=== PATIENT | female | born 1940 | race Asian ===

== ENCOUNTER 2019-12-25 16:49 | Inpatient (IN) | payer MEDICARE ==
[~2019-12-25] VITALS: Ht 170.2 cm; Wt 54.0 kg
--- NOTE | 2019-12-25 17:06 | NUR ---
CARLOS FROM [facility] TO ER BED 5. AAOX2. NO TIN RESP DISTRESS, BREATHING EVEN AND UNLABORED. BROUGHT IN FOR COUGHING UP BLOOD WHICH WAS NOTED BEGINNING LAST NIGHT PER REPORT. PT IS SATTING WELL AT 95% ON RA. AWAITING MD FOR EVAL
--- NOTE | 2019-12-25 17:27 | NUR ---
ORDERS RECEIVED. IV LINE ESTABLISHED ON R AC 18G. BLOOD DRAWN AND GIVEN TO MALE MODEL AT BEDSIDE
[2019-12-25 17:37] LABS: BASOPHILS % (AUTO) 0.8 % (0.0-2.0); EOSINOPHILS % (AUTO) 0.4 % (0.0-6.0); HEMATOCRIT 36 % (33-45); LYMPHOCYTES # (AUTO) 0.9 /CMM (0.8-4.8); LYMPHOCYTES % (AUTO) 19.4 % (20.0-44.0); MEAN CORPUSCULAR HGB CONC 33 g/dl (31.0-36.0); MEAN CORPUSCULAR VOLUME 98 fL (82-100); MONOCYTES # (AUTO) 0.3 /CMM (0.1-1.30); MONOCYTES % (AUTO) 7.4 % (2.0-12.0); NEUTROPHILS # (AUTO) 3.3 /CMM (1.8-8.9); PLATELET COUNT (AUTO) 355 /CMM (150-450); RED BLOOD CELL COUNT(AUTO) 3.68 MIL/uL (4.0-5.2); WHITE BLOOD COUNT (AUTO) 4.5 K/uL (4.3-11.0)
[2019-12-25] MEDS ORDERED: LOSA50TA39 PO (17:37)
[2019-12-25] MEDS ORDERED: BISA10SU11 RC (17:37)
[2019-12-25] MEDS ORDERED: ASCO-352 PO (17:37)
[2019-12-25] MEDS ORDERED: DOCU-141 PO (17:37)
[2019-12-25] MEDS ORDERED: MAGN400O6 PO (17:37)
[2019-12-25] MEDS ORDERED: ACET-868 PO (17:38)
[2019-12-25] MEDS ORDERED: ZINC1CAP2 PO (17:38)
[2019-12-25] MEDS ORDERED: FAMO20TA8 PO (17:38)
[2019-12-25] MEDS ORDERED: ALBU2.5V13 IH (17:38)
[2019-12-25] MEDS ORDERED: IBUP-2715 PO (17:38)
[2019-12-25 17:54] LABS: CALCIUM, SERUM 8.9 mg/dL (8.5-10.1); CREATININE 0.6 mg/dL (0.6-1.3); POTASSIUM 3.4 mmol/L (3.5-5.1)
[2019-12-25 17:59] LABS: ALBUMIN 2.3 g/dL (3.4-5.0); BILIRUBIN,DIRECT 0.1 mg/dL (0.0-0.2); BILIRUBIN,TOTAL 0.5 mg/dL (0.2-1.0); TOTAL PROTEIN, SERUM 7.2 g/dL (6.4-8.2)
[2019-12-25] MEDS ORDERED: IV NS 0.9% 1,000 ML IV ONE (18:30)
[2019-12-25] MEDS ORDERED: CEFEPIME 1 GM in IV D5W 50 ML IV ONE (18:30)
[2019-12-25] MEDS ORDERED: VANCOMYCIN 1 GM in IV D5W 250 ML IV ONE (18:30)
[2019-12-25] MEDS ORDERED: POTASSIUM CL. PREMIX PERIPHER. 100 ML ONE (18:30)
[2019-12-25] MEDS: POTASSIUM CL. PREMIX PERIPHER. 50 ML IV SCH ×2 (18:43→19:59)
--- NOTE | 2019-12-25 18:55 | NUR ---
COVID SWAB DONE AND SENT TO LAB
[2019-12-25] MEDS ORDERED: IOHEXOL-350 100 ML VIAL IV ONE (19:25)
[2019-12-25] MEDS ORDERED: CT SWABBABLE VALVE TRANS SET 1 EA INFUS.SET MC ONE (19:25)
[2019-12-25] MEDS ORDERED: IV NS 0.9% 250 ML IV ONE (19:25)
[2019-12-25] MEDS ORDERED: ALBUTEROL FS 2.5 MG/0.5 ML VIAL.NEB IH PRN (19:30)
[2019-12-25] MEDS ORDERED: ONDANSETRON HCL/PF 4 MG/2 ML VIAL IVP PRN (19:30)
[2019-12-25] MEDS ORDERED: MAGNESIUM HYDROXIDE 30 ML UDC PO PRN ×3 (19:30)
[2019-12-25] MEDS ORDERED: ACETAMINOPHEN 325 MG TABLET PO PRN ×2 (19:30)
[2019-12-25] MEDS ORDERED: BISACODYL SUPP (10 MG) 10 MG/SUPP.RECT SUPP.RECT RC PRN (19:30)
[2019-12-25] MEDS ORDERED: Z GUARD REMEDY 2 OZ OINT TP PRN (19:30)
[2019-12-25] MEDS ORDERED: MAG HYDROX/AL HYDROX/SIMETH 30 ML UDC PO PRN ×2 (19:30)
[2019-12-25] MEDS ORDERED: HYDROCODONE/APAP 5/325MG TABLET PO PRN (19:30)
--- NOTE | 2019-12-25 19:43 | NUR ---
pt back from radiology
[2019-12-25 20:00] VITALS: BP 146/88
[2019-12-25] MEDS ORDERED: CLINDAMYCIN 600 MG in IV D5W 100 ML IV ONE (20:00)
--- NOTE | 2019-12-25 20:48 | NUR ---
REPORT GIVEN TO JOYCELYN DUNNE FOR WOOD. PT GOING TO 207
[2019-12-25 21:00] VITALS: BP 146/88
--- NOTE | 2019-12-25 21:08 | NUR ---
PT TRANSPORTED TO UNIT ON GURNEY WITH EMT AND RN AT BEDSIDE W/ ACLS PROTOCOL. NAD NOTED DURING TRANSPORT.
--- NOTE | 2019-12-25 21:10 | NUR ---
RN NOTES RECEIVED PT. FROM ER WITH DX. OF HEMOPTYSIS,A/OX2-3, ST ON TELE MONITOR HR-103, SKIN ASSESSMENT DONE, PT.SPITTING PHLEGM BUT NO BLOOD TINGED , SIDERAILSUPX2, CONTINUE TO MONITOR
[2019-12-25] MEDS ORDERED: CLINDAMYCIN 900 MG/6 ML VIAL ONE (22:19)
[2019-12-25 23:58] VITALS: BP 138/79
[2019-12-26] VITALS (9 sets, daily range): BP systolic 109–138; BP diastolic 66–79
[2019-12-26] MEDS: PIPERACILLIN /TAZOBACTAM 3.375 G in IV D5W 50 ML IV SCH ×4 (00:27→17:01)
[2019-12-26] MEDS: FAMOTIDINE (20 MG) 20 MG TABLET PO SCH (06:09)
--- NOTE | 2019-12-26 06:34 | NUR ---
RN NOTES AWAKE, MORNING CARE RENDERED IN LOCKED POSITION, NOT IN DISTRESS, NO PAIN NOTED, , BED IN LOCKED POSITION,SIDERAILSUPX2, PT. NEEDS ATTENDED
[2019-12-26 07:24] LABS: BASOPHILS % (AUTO) 0.9 % (0.0-2.0); EOSINOPHILS % (AUTO) 0.8 % (0.0-6.0); HEMATOCRIT 34 % (33-45); HEMOGLOBIN 11.2 g/dL (11.5-14.8); LYMPHOCYTES # (AUTO) 0.5 /CMM (0.8-4.8); LYMPHOCYTES % (AUTO) 11.8 % (20.0-44.0); MEAN CORPUSCULAR HGB CONC 33 g/dl (31.0-36.0); MEAN CORPUSCULAR VOLUME 100 fL (82-100); MONOCYTES # (AUTO) 0.4 /CMM (0.1-1.30); MONOCYTES % (AUTO) 8.4 % (2.0-12.0); NEUTROPHILS # (AUTO) 3.5 /CMM (1.8-8.9); NEUTROPHILS % (AUTO) 78.1 % (43.0-81.0); PLATELET COUNT (AUTO) 315 /CMM (150-450); RED BLOOD CELL COUNT(AUTO) 3.43 MIL/uL (4.0-5.2); WHITE BLOOD COUNT (AUTO) 4.4 K/uL (4.3-11.0)
[2019-12-26 07:41] LABS: CALCIUM, SERUM 8.1 mg/dL (8.5-10.1); CARBON DIOXIDE 28 mmol/L (21-32); CHLORIDE 103 mmol/L (98-107); CREATININE 0.4 mg/dL (0.6-1.3); GLUCOSE 97 mg/dL (74-106); MAGNESIUM 2.1 mg/dL (1.8-2.4); PHOSPHORUS 2.5 mg/dL (2.5-4.9); POTASSIUM 3.3 mmol/L (3.5-5.1); SODIUM SERUM 138 mmol/L (136-145); UREA NITROGEN, BLOOD 9 mg/dL (7-18)
[2019-12-26] MEDS: POTASSIUM CHLORIDE 20 MEQ TAB.PRT.SR PO ONE ×2 (08:00→08:25)
--- NOTE | 2019-12-26 08:00 | NUR ---
PHYSICIAN/INTERNIST NOTES RECEIVED PT ,A/OX2-3, SR ON TELE MONITOR HR-83, PT.SPITTING PHLEGM BUT NO BLOOD TINGED NOTED , ORAL CARE GIVEN AND KEPT CLEAN AND DRY. SIDERAILSUPX2, TURNED EVERY TWO HRS. WILL CONTINUE TO MONITOR
[2019-12-26] MEDS: ZINC SULFATE 220 MG CAPSULE PO SCH ×2 (08:20→09:00)
[2019-12-26] MEDS: DOCUSATE SODIUM 100 MG CAPSULE PO SCH ×3 (08:20→16:59)
[2019-12-26] MEDS: VANCOMYCIN 0.75 GM in IV D5W 250 ML IV SCH ×2 (08:20→20:02)
[2019-12-26] MEDS: ASCORBIC ACID 500 MG TABLET PO SCH ×3 (08:20→16:59)
--- NOTE | 2019-12-26 08:20 | NUR ---
NOTIFIED DR HOBBS OF PT'S VTE 3 NEEDING CHEMICAL PROPHYLAXIS AND DR HOBBS STATED THAT HE WILL CHECK ON IT.
[2019-12-26] MEDS: LOSARTAN POTASSIUM 50 MG TABLET PO SCH ×2 (08:26→09:00)
--- NOTE | 2019-12-26 10:03 | NUR ---
FLU/PNA STATUS CALLED [facility] AND SPOKE TO THE RN EDUCATION DIAGNOSTICIAN WHO STATED THAT THEY HELD ADMINISTERING FLU/PNA VACCINE IN THE FACILITY DUE TO THE OUTBREAK. PT IS ALSO NOTED TO BE ALLERGIC TO EGGS WHICH IS THE REASON WHY FLU VACCINE WAS HELD.
--- NOTE | 2019-12-26 10:08 | NUR ---
PT ATE SCRAMBLED EGGS THIS MORNING BUT WITH NO ALLERGIC REACTION NOTED.PT ADMITS SHE IS ALLERGIC TO EGGS. PT HAS HX OF CONFUSION.
--- NOTE | 2019-12-26 15:29 | NUR ---
NOTIFIED DR HOBBS 2ND TIME OF PT'S VTE 3 NEEDING CHEMICAL PROPHYLAXIS AND DR HOBBS STATED THAT HE WILL CHECK ON IT.
--- NOTE | 2019-12-26 18:15 | NUR ---
NOTIFIED PT OF THE COVID PCR :NEGATIVE RESULT AND THAT SHE WILL BE TRANSFERRED TO [facility] ROOM 327-2. REPORT AND MEDICATIONS GIVEN TO JOYCELYN PACE OF [facility] FOR CONTINUITY OF CARE. PT DENIES ANY PAIN OR DISTRESS.NO SOB ON ROOM AIR.KEPT CLEAN AND DRY.
--- NOTE | 2019-12-26 18:51 | NUR ---
TELE/RN CLOSING RECEIVED REPORT FROM ABIMBOLA HIRSCH, PATIENT CAME AT 1830. PATIENT IN NO APPARENT RESPIRATORY DISTRESS NOTED. NO SIGN AND SYMPTOM OF PAIN NOTED AT THIS TIME. WILL ENDORSED TO SUPERVISOR COKE HANDLING FOR WOOD.
--- NOTE | 2019-12-26 19:30 | NUR ---
TELE/RN OPENING NOTES: RECEIVED PT. IN BED, A/OX2. VERBALLY RESPONSIVE AND ABLE TO MAKE NEEDS KNOWN. PT. TALKS VERY SOFTLY AND USES HAND GESTURES TO COMMUNICATE. PT. LIKES TO SPIT OUT PHLEGM. TOWELS PLACED ON HER CHEST AND AT BEDSIDE. EMESIS BAG AT BEDSIDE WELL. NO SOB NOTED. ON ROOM AIR, BREATHING EVEN AN UNLABORED. NO C/O PAIN AT THIS TIME. ON TELE MONITORING WITH READING OF SR 96. IV ON THE LFA #20G AND RAC #20G, INTACT AND PATENT. SAFETY MEASURES IN PLACE. BED IN LOW, LOCKED POSITION WITH SR UP X2. WILL CONTINUE TO MONITOR ACCORDINGLY.
[2019-12-27] MEDS: PIPERACILLIN /TAZOBACTAM 3.375 G in IV D5W 50 ML IV SCH ×5 (00:14→23:30)
[2019-12-27 04:00] VITALS: BP 117/72
[2019-12-27 05:04] VITALS: BP 117/72
[2019-12-27] MEDS: FAMOTIDINE (20 MG) 20 MG TABLET PO SCH (06:11)
--- NOTE | 2019-12-27 06:55 | NUR ---
TELE/RN CLOSING NOTES: PT. REMAINS BED, A/OX2. VERBALLY RESPONSIVE AND ABLE TO MAKE NEEDS KNOWN. NO SOB NOTED. ON ROOM AIR, BREATHING EVEN AN UNLABORED. NO C/O PAIN AT THIS TIME. ON TELE MONITORING WITH READING OF ST 101. IV ON THE LFA #20G AND RAC #20G, INTACT AND PATENT. ALL DUE MEDS GIVEN ORDERED. ALL NURSING NEEDS MET AND RENDERED. [id number]. KEPT CLEAN AND DRY AND COMFORTABLE THROUGHOUT THE SHIFT. SAFETY MEASURES IN PLACE. BED IN LOW, LOCKED POSITION WITH SR UP X2. WILL ENDORSE TO DAY SHIFT FOR WOOD.
[2019-12-27 07:42] LABS: CALCIUM, SERUM 8.4 mg/dL (8.5-10.1); CREATININE 0.6 mg/dL (0.6-1.3); POTASSIUM 3.3 mmol/L (3.5-5.1)
--- NOTE | 2019-12-27 07:52 | NUR ---
CLOUD SYSTEMS ADMINISTRATOR OPENING NOTES BEDSIDE ENDORSEMENT DONE. PATIENT IS IN BED, AWAKE AND VERBALLY RESPONSIVE. A/O X1-2, MOUTHS WORDS/SPEAKS SOFTLY. BREATHING EVEN AND UNLABORED, TOLERATING ROOM AIR. ON TELE MONITORING, READING OF SR W/ PAC, HR AT 90'S, NO CARDIAC DISTRESS. IV LINE ON RAC #20 AND LFA #20 INTACT AND PATENT. SAFETY PRECAUTIONS IN PLACE: BED LOCKED AND ON LOWEST POSITION, SR UP X2, CALL LIGHT W/IN REACH. WILL MONITOR ACCORDINGLY.
[2019-12-27 08:00] VITALS: BP 109/62
[2019-12-27] MEDS: VANCOMYCIN 0.75 GM in IV D5W 250 ML IV SCH (08:50)
[2019-12-27] MEDS: ASCORBIC ACID 500 MG TABLET PO SCH ×2 (08:51→17:06)
[2019-12-27] MEDS: LOSARTAN POTASSIUM 50 MG TABLET PO SCH (08:51)
[2019-12-27] MEDS: ZINC SULFATE 220 MG CAPSULE PO SCH (08:51)
[2019-12-27] MEDS: DOCUSATE SODIUM 100 MG CAPSULE PO SCH ×2 (08:51→17:06)
[2019-12-27] MEDS ORDERED: POTASSIUM CHLORIDE 20 MEQ TAB.PRT.SR PO SCH (10:00)
--- NOTE | 2019-12-27 11:38 | NUR ---
WOUND CARE CONSULT: PT PRESENTS WITH SACRAL SCAR, PRESENT ON ADMISSION. PT IS INCONTINENT. RECOMMENDATIONS MADE FOR SKIN PROTECTION. DISCUSSED WITH NURSING STAFF. PT TO BE PLACED ON ISOFLEX LOW AIRLOSS BED. MD IN AGREEMENT WITH PLAN OF CARE.
--- NOTE | 2019-12-27 15:24 | NUR ---
RN NOTES PATIENT WAS SEEN SPITTING SCANT AMOUNT OF SPUTUM. ASKED IF SHE FEELS NAUSEOUS, TO WHICH PATIENT NODDED HER HEAD. ZOFRAN IV GIVEN INDICATED AND REASSESSED PATIENT. PATIENT NODDED HER HEAD WHEN ASKED IF THE NAUSEA HAS DECREASED.
[2019-12-27 16:00] VITALS: BP 128/56
--- NOTE | 2019-12-27 17:58 | NUR ---
RN NOTES PATIENT WAS SEEN BY DR. LOPEZ W/ ORDER FOR CT ABDOMEN PELVIS W/O CONTRAST. PATIENT ALERT AND ORIENTED X1-2, ABLE TO MAKE NEEDS KNOWN, EXPLAINED PROCEDURE AND CONSENT TO PATIENT, NODDED UNDERSTANDING. CONSENT FORM SIGNED BY PATIENT AND WITNESSED BY ME.
--- NOTE | 2019-12-27 18:00 | NUR ---
RN NOTES [facility] CALLED AND INFORMED ABOUT PATIENT'S POSITIVE MRSA RESULT OF RIGHT NARES. DR. HOBBS MADE AWARE W/ ORDER OF BACTROBAN SILVANA BID X5DAYS, NOTED.
--- NOTE | 2019-12-27 18:58 | NUR ---
FORK REPAIRER CLOSING NOTES PATIENT IS IN BED, AWAKE AND VERBALLY RESPONSIVE. A/O X1-2, MOUTHS WORDS/SPEAKS SOFTLY. BREATHING EVEN AND UNLABORED, TOLERATING ROOM AIR. ON TELE MONITORING, READING OF SR, HR AT MID 80'S, NO CARDIAC DISTRESS. IV LINE ON LFA #20 INTACT AND PATENT. DUE MEDS GIVEN TODAY. KEPT CLEAN AND COMFORTABLE. SAFETY PRECAUTIONS MAINTAINED: BED LOCKED AND ON LOWEST POSITION, SR UP X2, CALL LIGHT W/IN REACH. WILL ENDORSE TO ANALYTICS SENIOR MANAGER RN FOR WOOD.
--- NOTE | 2019-12-27 19:30 | NUR ---
TELE/RN OPENING NOTES RECEIVED PATIENT IN BED RESTING. PATIENT IS ALERT AND ORIENTED X 2. TELE READING SR 99. BREATHING IS EVEN AND UNLABORED. NO SIGNS OF SOB OR RESPIRATORY DISTRESS NOTED. PATIENT SHOWS NO PAIN OR DISCOMFORT AT THIS TIME. PATIENT HAS IV ACCESS ON LEFT FOREARM INTACT FLUSHING WELL. SAFETY MEASURES ARE ON PLACE, BED IS LOCKED AND PLACED IN THE LOW POSITION, SIDE RAILS UP X 2. CALL LIGHT IS WITHIN REACH. WILL CONTINUE TO MONITOR DURING SHIFT.
[2019-12-27 20:00] VITALS: BP 133/80
[2019-12-27 20:07] VITALS: BP 133/80
[2019-12-27] MEDS: VANCOMYCIN 1 GM in IV D5W 250 ML IV SCH (20:20)
[2019-12-27] MEDS: MUPIROCIN OINT 2% 22 GM TUBE SCH (20:22)
[2019-12-28] VITALS (8 sets, daily range): BP systolic 108–150; BP diastolic 65–98
[2019-12-28] MEDS: PIPERACILLIN /TAZOBACTAM 3.375 G in IV D5W 50 ML IV SCH ×3 (05:31→17:13)
[2019-12-28] MEDS: FAMOTIDINE (20 MG) 20 MG TABLET PO SCH (05:31)
--- NOTE | 2019-12-28 06:30 | NUR ---
TELE/RN CLOSING NOTES PATIENT IS IN BED RESTING. ALERT AND ORIENTED X 1-2, ABLE TO MAKE NEEDS KNOWN TO STAFF MEMBERS. TELE READING SR95 . PATIENTS BREATHING IS EVEN AND UNLABORED. NO SIGNS OF RESPIRATORY DISTRESS NOTED. PATIENT HAS IV ACCESS ON LEFT FOREARM INTACT SL. ALL PATIENTS NEEDS HAVE BEEN MET DURING SHIFT. SAFETY MEASURES ARE IN PLACE, BED IS LOCKED AND PLACED IN THE LOW POSITION, SIDE RAILS UP X 2. CALL LIGHT IS WITHIN REACH. WILL ENDORSE CARE TO DAY SHIFT NURSE.
[2019-12-28 07:36] LABS: CALCIUM, SERUM 8.8 mg/dL (8.5-10.1); CARBON DIOXIDE 29 mmol/L (21-32); CHLORIDE 102 mmol/L (98-107); CREATININE 0.5 mg/dL (0.6-1.3); GLUCOSE 106 mg/dL (74-106); POTASSIUM 3.1 mmol/L (3.5-5.1); SODIUM SERUM 137 mmol/L (136-145); UREA NITROGEN, BLOOD 8 mg/dL (7-18)
[2019-12-28 07:37] LABS: BASOPHILS % (AUTO) 0.8 % (0.0-2.0); EOSINOPHILS % (AUTO) 0.2 % (0.0-6.0); HEMATOCRIT 32 % (33-45); HEMOGLOBIN 10.6 g/dL (11.5-14.8); LYMPHOCYTES # (AUTO) 0.6 /CMM (0.8-4.8); LYMPHOCYTES % (AUTO) 12.2 % (20.0-44.0); MEAN CORPUSCULAR HGB CONC 33 g/dl (31.0-36.0); MEAN CORPUSCULAR VOLUME 99 fL (82-100); MONOCYTES # (AUTO) 0.3 /CMM (0.1-1.30); MONOCYTES % (AUTO) 5.6 % (2.0-12.0); NEUTROPHILS % (AUTO) 81.2 % (43.0-81.0); PLATELET COUNT (AUTO) 283 /CMM (150-450); RED BLOOD CELL COUNT(AUTO) 3.22 MIL/uL (4.0-5.2); WHITE BLOOD COUNT (AUTO) 4.9 K/uL (4.3-11.0)
--- NOTE | 2019-12-28 08:05 | NUR ---
OVEN HEATER OPENING NOTES RECEIVED PT ON BED, A/O1-2, NON VERBAL COMMUNICATION VIA NODDING. NO PRESENCE OF ACUTE RESPIRATORY DISTRESS, ON RA AND TOLERATING WELL. ABD SOFT AND NON DISTENDED WITH ACTIVE BOWEL SOUNDS. NO S/SX OF PAIN AND DISCOMFORT. SKIN WARM TO TOUCH AND DRY. TOLERATING BREAKFAST REGULAR DIET, WITH ASPIRATION PRECAUTION, HOB ELEVATED. IV SITE AT LFA #20 H/L PATENT IN FLUSHING, NO S/SX OF INFILTRATION NOTED. BED IN LOW LOCKED POSITION, NEAR NURSES STATION. TELE MONITOR SHOWS SR. WILL CONT TO MONITOR CARE
[2019-12-28] MEDS: VANCOMYCIN 1 GM in IV D5W 250 ML IV SCH ×2 (08:08→20:01)
[2019-12-28] MEDS: ASCORBIC ACID 500 MG TABLET PO SCH ×2 (08:49→16:24)
[2019-12-28] MEDS: DOCUSATE SODIUM 100 MG CAPSULE PO SCH ×2 (08:49→16:24)
[2019-12-28] MEDS: ZINC SULFATE 220 MG CAPSULE PO SCH (08:49)
[2019-12-28] MEDS: LOSARTAN POTASSIUM 50 MG TABLET PO SCH (08:50)
[2019-12-28] MEDS: MUPIROCIN OINT 2% 22 GM TUBE SCH ×2 (09:10→21:35)
--- NOTE | 2019-12-28 09:50 | NUR ---
SCALP TREATMENT OPERATOR NOTES ENDORSED PT CARE TO GREG HIRSCH, MAIN NURSE
--- NOTE | 2019-12-28 10:00 | NUR ---
BUSINESS SUPPORT LIAISON NOTES RECEIVED PATIENT FOR CONTINUATION OF CARE.
--- NOTE | 2019-12-28 10:15 | NUR ---
RESEARCH GREENHOUSE SUPERVISOR NOTES PATIENT OFF UNIT, WENT TO CT.
[2019-12-28] MEDS: POTASSIUM CHLORIDE 20 MEQ TAB.PRT.SR PO SCH ×2 (10:55→12:26)
--- NOTE | 2019-12-28 11:00 | NUR ---
KENO WRITER / RUNNER NOTES PATIENT RETURNED TO UNIT FROM CT.
--- NOTE | 2019-12-28 15:30 | NUR ---
INTELLIGENCE SENIOR SERGEANT NOTES CALLED [facility] AND SPOKE TO DESTINY (NURSE) REGARDING PATIENT. PER DESTINY PATIENT HAS NOT BEEN TREATED FOR LUNG CA WITH ANY DRUGS NOR HAS BEEN SEEN BY ANY ONCOLOGIST. PATIENT WAS ADMITTED TO [facility] IN OF THIS YEAR FROM [facility] BUT NO OTHER RECORDS ABOUT LUNG CANCER GIVEN TO [facility] PER DESTINY.
--- NOTE | 2019-12-28 18:38 | NUR ---
MULTIMEDIA INSTRUCTIONAL DESIGNER NOTE PATIENT RESTING COMFORTABLY IN BED. ALERT AND ORIENTED X1. ABLE TO ANSWER SIMPLE QUESTIONS WITH YES OR NO BY NODDING HEAD. ABLE TO FOLLOW SIMPLE COMMANDS. VERBALLY RESPONSIVE WITH SOFT SPOKEN WORDS. HOB ELEVATED. REMAIN ON ROOM AIR DURING THE SHIFT WITH SPO2 OF 96-98%. OBSERVED PATIENT SPITTING AND COUGHING OUT YELLOW THICK SECRETIONS, NO BLOOD OBSERVED. REMAIN ON TELE MONITORING ST:90. LEFT FA SL #20 INTACT AND PATENT. DENIES ANY C/O PAIN NOR DISCOMFORT. BED IN LOWEST POSITION, LOCKED. FREQUENT VISUAL CHECK DONE. IN NO APPARENT DISTRESS.
--- NOTE | 2019-12-28 19:10 | NUR ---
burner operator opening notes received patient in bed awake alert and oriented x1-2, able to make simple needs known by head gesturing yes or no, respirations even and unlabored with equal rise and fall of chest, at this time remains comfortable, denies any discomfort ,no distress present, on tele monitoring st 120 , iv site to left fa#20 g intact and patent, no redness,no infiltration present, safety precautions rendered, low bed and locked, oriented to call light and kept within reach, all needs attended at this time will continue to monitor and attend to needs.
[2019-12-28 19:40] LABS: IRON, SERUM 25 ug/dl (50-175); TOTAL IRON BINDING CAPACITY 165 ug/dl (250-450)
[2019-12-28 19:44] LABS: FERRITIN 1338 ng/mL (8-388)
[2019-12-28] MEDS: ACETAMINOPHEN 325 MG TABLET PO PRN (20:35)
--- NOTE | 2019-12-28 20:36 | NUR ---
weed burner notes noted facial grimacing asked patient if in pain nodded head yes, asked pt to point to pain location pointed to legs, offered repositioning and pain medication patient nodded head and agreed to tylenol prn for pain.
[2019-12-28] MEDS: MEROPENEM 500 MG in IV NS 0.9% 50 ML IV SCH (21:33)
[2019-12-29] VITALS (9 sets, daily range): BP systolic 110–140; BP diastolic 60–88
[2019-12-29] MEDS: MEROPENEM 500 MG in IV NS 0.9% 50 ML IV SCH ×3 (05:15→21:25)
[2019-12-29] MEDS: FAMOTIDINE (20 MG) 20 MG TABLET PO SCH (05:17)
--- NOTE | 2019-12-29 06:30 | NUR ---
corn husk baler closing notes patient in bed awake alert and oriented x1-2, able to make simple needs known by head gesturing yes or no, respirations even and unlabored with equal rise and fall of chest, at this time remains comfortable, denies any discomfort ,no distress present, on tele monitoring st 111 , no distress present. iv site to left fa#20 g intact and patent, no redness,no infiltration present, safety precautions rendered, low bed and locked, repositioned q 2hrs ,call light kept within reach, all needs attended at this time will continue to monitor and attend to needs and endorse to next shift.
[2019-12-29 07:05] LABS: BASOPHILS % (AUTO) 0.2 % (0.0-2.0); HEMATOCRIT 35 % (33-45); HEMOGLOBIN 11.4 g/dL (11.5-14.8); LYMPHOCYTES # (AUTO) 0.8 /CMM (0.8-4.8); LYMPHOCYTES % (AUTO) 11.5 % (20.0-44.0); MEAN CORPUSCULAR HGB CONC 33 g/dl (31.0-36.0); MEAN CORPUSCULAR VOLUME 100 fL (82-100); MONOCYTES # (AUTO) 1.2 /CMM (0.1-1.30); MONOCYTES % (AUTO) 17.5 % (2.0-12.0); NEUTROPHILS # (AUTO) 4.7 /CMM (1.8-8.9); NEUTROPHILS % (AUTO) 70.8 % (43.0-81.0); PLATELET COUNT (AUTO) 247 /CMM (150-450); RED BLOOD CELL COUNT(AUTO) 3.48 MIL/uL (4.0-5.2); WHITE BLOOD COUNT (AUTO) 6.6 K/uL (4.3-11.0)
[2019-12-29] MEDS: VANCOMYCIN 1 GM in IV D5W 250 ML IV SCH (08:00)
--- NOTE | 2019-12-29 08:17 | NUR ---
RN OPENING NOTE Patient is resting in bed, A/O x1, responds by nodding head "yes" or "no," she is in no acute distress or SOB, stable on RA. Tele monitor ST 116. Patient denies pain at this time. Patient is able to cough up thick yellow/white secretions --suction as needed. Patient vomited x1 small amount of the puree food for breakfast. Bed is in lowest position, side rails x3 in upright position, call light is within reach, fall safety aspiration and isolation precautions enforced to R/O TB. Will continue with plan of care.
--- NOTE | 2019-12-29 08:18 | NUR ---
RN NOTE Held Vanco this AM due to trough level of 21. Pharmacy aware.
[2019-12-29] MEDS: DOCUSATE SODIUM 100 MG CAPSULE PO SCH ×2 (08:20→16:01)
[2019-12-29] MEDS: ZINC SULFATE 220 MG CAPSULE PO SCH (08:20)
[2019-12-29] MEDS: ASCORBIC ACID 500 MG TABLET PO SCH ×2 (08:20→16:01)
[2019-12-29] MEDS: LOSARTAN POTASSIUM 50 MG TABLET PO SCH (08:20)
[2019-12-29 08:38] LABS: CALCIUM, SERUM 8.6 mg/dL (8.5-10.1); POTASSIUM 3.9 mmol/L (3.5-5.1)
[2019-12-29] MEDS: MUPIROCIN OINT 2% 22 GM TUBE SCH ×2 (08:39→21:29)
[2019-12-29 09:03] LABS: BAND % (MANUAL) 1 % (0.0-5.0); LYMPHOCYTES % (MANUAL) 13 % (16-48); MONOCYTES % (MANUAL) 12 % (0-11.0); NEUTROPHILS % (MANUAL) 74 (42-76)
[2019-12-29] MEDS: ACETAMINOPHEN 325 MG TABLET PO PRN (16:01)
--- NOTE | 2019-12-29 17:05 | NUR ---
RN NOTE Around 1530, patient's temp was 100.8F, cooling measures implemented and Tylenol PRN given. Re-checked temp and it went down to 97.9F. Patient VS remain stable, will continue to monitor.
[2019-12-29] MEDS: ENSURE ENLIVE CHOC 237 ML CAN PO SCH (17:15)
--- NOTE | 2019-12-29 18:30 | NUR ---
RN CLOSING NOTE Patient is resting in bed, A/O x1, responds by nodding head "yes" or "no," she is in no acute distress or SOB, stable on RA. Tele monitor ST 116. . Patient is able to cough up thick yellow/white secretions --suction as needed. Dulcolax supp given d/t constipation--no BM this shift. All patient needs met, all due medications given, patient kept clean and dry throughout shift. Bed is in lowest position, side rails x3 in upright position, call light is within reach, fall safety aspiration and isolation precautions enforced to R/O TB. Will endorse to manufacturing shift supervisor for WOOD. *Called daughter Mary x2 to f/u on previous patient records per , however, family did not answer.
--- NOTE | 2019-12-29 20:00 | NUR ---
tele school bus driver/teacher assistant initial notes received report from am nurse and seen pt in bed resting with eyes closed. , breathing even and non-labored not in any distress noted.suctioned as needed. arouse to her name and touch. IVF still infusing . skin warm and dry to touch, encourage her to used the call light if she needs some help or needs the nurse, She also on Tele Sinus Tach heart rate 103. kept her warm and comfortable at all times. will continue monitoring, place call light at reach.
[2019-12-29] MEDS ORDERED: VANCOMYCIN 1 GM in IV D5W 250 ML IV SCH (21:00)
[2019-12-30] VITALS: BP 136/77
--- NOTE | 2019-12-30 | NUR ---
tele phlebotomist lab assistant notes pt sleeping comfortably in bed without any acute distress noted. respiration even and unlabored. Tele Sinus tach. vital signs stable . kept her warm and comfortable at all times. will continue monitoring.
[2019-12-30 04:00] VITALS: BP 137/77
[2019-12-30] MEDS: MEROPENEM 500 MG in IV NS 0.9% 50 ML IV SCH ×3 (05:31→20:42)
[2019-12-30] MEDS: FAMOTIDINE (20 MG) 20 MG TABLET PO SCH (05:56)
[2019-12-30 06:51] LABS: CALCIUM, SERUM 8.3 mg/dL (8.5-10.1); CARBON DIOXIDE 23 mmol/L (21-32); CHLORIDE 100 mmol/L (98-107); CREATININE 2.4 mg/dL (0.6-1.3); GLUCOSE 91 mg/dL (74-106); POTASSIUM 3.5 mmol/L (3.5-5.1); SODIUM SERUM 136 mmol/L (136-145); UREA NITROGEN, BLOOD 25 mg/dL (7-18)
--- NOTE | 2019-12-30 07:00 | NUR ---
tele nurse private duty closing notes ' pt resting comfortably in bed without any acute distress noted. pt able to spit out her phlegm that light yellowish in color. Stable throughout the night and all due meds given . morning care rendered as well as skin care. applied z guard and mepilex to buttocks area. reposition her for comfort. kept her warm and comfortable at all times. place call light at reach. Tele Sinus tach heart rate 110 per monitor. will endorse to am nurse for continuity of care.
[2019-12-30 07:06] LABS: IMMUNOGLOBULIN A, SERUM 376 mg/dL (64-422); IMMUNOGLOBULIN G, SERUM 1471 mg/dL (586-1602); IMMUNOGLOBULIN M, SERUM 102 mg/dL (26-217)
--- NOTE | 2019-12-30 07:25 | NUR ---
PRODUCT OPERATIONS ASSOCIATE NOTES PATIENT RECEIVED IN BED, ALERT AND ORIENTED X 1-2. PATIENT ON ROOM AIR WITH NO SIGNS OF RESPIRATORY DISTRESS WITH EVEN NON-LABORED BREATHING, AND NO SOB NOTED, WITH PRODUCTIVE COUGH. ON RESIDENTIAL TECH SINUS RHYTHM 100. IV ACCESS INTACT AND PATENT. SKIN WARM AND DRY TO TOUCH. ISOLATION PRECAUTIONS REMAINS. SAFETY PRECAUTIONS IMPLEMENTED WITH BED LOCKED BED IN THE LOWEST POSITION, BILATERAL SIDE RAILS UP, BED ALARM ON, AND CALL LIGHT WITHIN EASY REACH OF THE PATIENT. WILL CONTINUE TO MONITOR PATIENT.
[2019-12-30 08:00] VITALS: BP 156/51
[2019-12-30] MEDS: ZINC SULFATE 220 MG CAPSULE PO SCH (09:14)
[2019-12-30] MEDS: DOCUSATE SODIUM 100 MG CAPSULE PO SCH ×2 (09:14→17:04)
[2019-12-30] MEDS: ASCORBIC ACID 500 MG TABLET PO SCH ×2 (09:14→17:04)
[2019-12-30] MEDS: MUPIROCIN OINT 2% 22 GM TUBE SCH ×2 (09:31→20:43)
[2019-12-30] MEDS: ENSURE ENLIVE CHOC 237 ML CAN PO SCH ×3 (09:31→17:04)
--- NOTE | 2019-12-30 11:53 | NUR ---
SURVEY FIELD TECHNICIAN NOTES CALLED [facility], , REGARDING PATIENT'S PRIMARY ONCOLOGIST AND RECORDS, SPOKE WITH ERIKA AND STATES THERE IS NO INFORMATION AND WILL LOOK INTO AND CALL BACK, CALL BACK NUMBER PROVIDED, AND WILL AWAIT FOR UPDATE.
[2019-12-30 12:00] VITALS: BP 100/57
[2019-12-30 16:00] VITALS: BP 104/63
[2019-12-30 16:31] LABS: *SPE A/G RATIO 0.7 (0.7-1.7); *SPE ALBUMIN 2.7 g/dL (2.9-4.4); *SPE ALPHA-1-GLOBULIN 0.4 g/dL (0.0-0.4); *SPE ALPHA-2-GLOBULIN 0.9 g/dL (0.4-1.0); *SPE BETA GLOBULIN 1.1 g/dL (0.7-1.3); *SPE M-SPIKE Not Observed g/dL (Not Observed); *SPEGAMMA GLOBULIN 1.5 g/dL (0.4-1.8)
--- NOTE | 2019-12-30 18:19 | NUR ---
PLANER HAND NOTES PATIENT IN BED, RESTING COMFORTABLY, ALERT AND ORIENTED 1-2, ABLE TO ANSWER TO YES OR NO QUESTIONS, AND NEEDS ARE MET. ON ROOM AIR WITH NO SIGNS OF RESPIRATORY DISTRESS AT THIS TIME, WITH EVEN NON-LABORED BREATHING, AND WITH PRODUCTIVE PHLEGM PRESENT, SUCTION NEEDED. PATIENT PRESENTS WITH NO PAIN OR DISCOMFORT AT THIS TIME. ON SOFTWARE LICENSING EXECUTIVE SINUS TACH, 116-118. MET ALL OF PATIENT NEEDS, PATIENT KEPT CLEAN AND DRY. PATIENT IV ACCESS INTACT AND PATENT. SAFETY PRECAUTIONS IMPLEMENTED WITH THE BED LOCKED, BED IN THE LOWEST POSITION, BILATERAL SIDE RAILS UP, BED ALARM ON AND CALL LIGHT WITHIN EASY REACH OF THE PATIENT. WILL ENDORSE PLAN OF CARE TO UPCOMING RN.
--- NOTE | 2019-12-30 19:30 | NUR ---
Opening Notes: Report received from am nurse. Patient alert, awake and oriented x1. Patient able to respond by nodding her head. On telemetry monitoring, noted sinus tachy. Patient in no s/s of distress or discomfort, no SOB noted, no c/o pain. Patient noted with IV on left forearm, 20 g, TKO, aspiration precaution observed. Needs anticipated and attended. Fall precautions observed. Call light within reach.
[2019-12-30 20:00] VITALS: BP 109/64
[2019-12-31] VITALS: BP 119/74
[2019-12-31 04:00] VITALS: BP 121/82
[2019-12-31] MEDS: MEROPENEM 500 MG in IV NS 0.9% 50 ML IV SCH (05:10)
--- NOTE | 2019-12-31 05:47 | NUR ---
Closing Notes: Patient alert and oriented x1. Patient in no s/s of distress or discomfort, no SOB noted, no c/o pain. VS WNL. IV on left forearm, 20 g, intact, TKO, aspiration precaution observed. Turned and repositioned every 2 hours, tolerated well. Needs anticipated and attended. Bed locked and in lowest position. Call light within reach.
[2019-12-31] MEDS: FAMOTIDINE (20 MG) 20 MG TABLET PO SCH (06:07)
[2019-12-31 06:27] LABS: BASOPHILS % (AUTO) 0.6 % (0.0-2.0); HEMATOCRIT 35 % (33-45); HEMOGLOBIN 11.7 g/dL (11.5-14.8); LYMPHOCYTES # (AUTO) 1.1 /CMM (0.8-4.8); LYMPHOCYTES % (AUTO) 26.4 % (20.0-44.0); MEAN CORPUSCULAR HGB CONC 33 g/dl (31.0-36.0); MEAN CORPUSCULAR VOLUME 98 fL (82-100); MONOCYTES # (AUTO) 0.4 /CMM (0.1-1.30); MONOCYTES % (AUTO) 9.8 % (2.0-12.0); NEUTROPHILS # (AUTO) 2.5 /CMM (1.8-8.9); NEUTROPHILS % (AUTO) 63.2 % (43.0-81.0); PLATELET COUNT (AUTO) 266 /CMM (150-450); RED BLOOD CELL COUNT(AUTO) 3.63 MIL/uL (4.0-5.2)
[2019-12-31 07:05] LABS: CALCIUM, SERUM 8.4 mg/dL (8.5-10.1); CARBON DIOXIDE 26 mmol/L (21-32); CHLORIDE 102 mmol/L (98-107); CREATININE 3.1 mg/dL (0.6-1.3); GLUCOSE 109 mg/dL (74-106); MAGNESIUM 2.4 mg/dL (1.8-2.4); PHOSPHORUS 3.6 mg/dL (2.5-4.9); POTASSIUM 3.5 mmol/L (3.5-5.1); SODIUM SERUM 139 mmol/L (136-145); UREA NITROGEN, BLOOD 44 mg/dL (7-18)
--- NOTE | 2019-12-31 07:30 | NUR ---
LADLE POURER NOTES PT IN BED, AWAKE, ALERT TO SELF, NON VERBAL, NODS, NO SIGN OF PAIN OR DISTRESS, NO COUGHING, ON ROOM AIR, TOLERATING WELL, CALL LIGHT WITHIN REACH, KEPT COMFORTABLE IN BED, ISOLATION PRECAUTIONS OBSERVED.
[2019-12-31 08:00] VITALS: BP 134/90
[2019-12-31] MEDS: MUPIROCIN OINT 2% 22 GM TUBE SCH ×2 (08:34→21:00)
[2019-12-31] MEDS: ASCORBIC ACID 500 MG TABLET PO SCH ×2 (08:34→16:10)
[2019-12-31] MEDS: ZINC SULFATE 220 MG CAPSULE PO SCH (08:34)
[2019-12-31] MEDS: DOCUSATE SODIUM 100 MG CAPSULE PO SCH ×2 (08:34→16:10)
[2019-12-31] MEDS: ENSURE ENLIVE CHOC 237 ML CAN PO SCH ×3 (08:35→16:21)
[2019-12-31] MEDS ORDERED: VANCOMYCIN 0.75 GM in IV D5W 250 ML IV SCH (09:00)
--- NOTE | 2019-12-31 11:40 | NUR ---
MAIL HANDLERS SUPERVISOR NOTES PT IN BED, AWAKE, NO SIGN OF PAIN OR DISTRESS, CALL LIGHT WITHIN REACH, ASSISTED WITH MEALS, REPOSITIONED FOR COMFORT.
[2019-12-31 12:38] VITALS: BP 122/77
[2019-12-31] MEDS ORDERED: MEROPENEM 1 G in IV NS 0.9% 100 ML IV SCH (17:00)
--- NOTE | 2019-12-31 18:48 | NUR ---
TILE SPRAYER CLOSING NOTES PATIENT RESTING IN BED, AWAKE, A/O X1-2. NONVERBAL, NODS AND RESPONDS TO VERBAL COMMANDS. PT ON TELE READING TACHY IN LOW 100'S. PT BEDRIDDEN. ON PUREE NECTAR DIET. NO C/O PAIN. PATIENT ON RA WITH NO C/O SOB, NO ACUTE RESPIRATORY DISTRESS NOTED. IV TO LTFA #20G PATENT AND INTACT FLUSHING WELL WITH NO SIGNS OF REDNESS OR SWELLING NOTED. BED IS AT LOWEST POSITION WITH SIDE RAILS UPX2 AND CALL LIGHT WITHIN REACH. WILL ENDORSE TO ONCOMING SHIFT
--- NOTE | 2019-12-31 19:40 | NUR ---
GUILLOTINE OPERATOR OPENING NOTES PATIENT SLEEPING, OPENS EYES TO TOUCH, NONVERBAL. A/OX1-2. ON RA; NO S/S OF ACUTE RESPIRATORY DISTRESS; BREATHING IS EVEN AND UNLABORED. NO S/S OF PAIN NOTED. TELE MONITOR READING SINUS TACH, HEART RATE 108. IV PRESENT ON LEFT FA, SIZE 20, INTACT & PATENT WITH NS RUNNING TKO. DROPLET AND CONTACT ISOLATION IN PLACE FOR MRSA IN THE NARES AND R/O TB; RESULTS PENDING. SAFETY MEASURES IN PLACE AND PATIENT'S NEEDS MET. BED LOCKED, ALARM ON, HOB ELEVATED, SIDE RAILS X2, CALL LIGHT WITHIN REACH. WILL CONTINUE TO MONITOR.
[2019-12-31 20:00] VITALS: BP 106/67
[2019-12-31] MEDS: LEVOFLOXACIN (250MG) 250 MG TABLET PO SCH (20:32)
[2019-12-31] MEDS: DOXYCYCLINE HYCLATE (100 MG) 100 MG TABLET PO SCH (20:32)
[2020-01-01] VITALS: BP 107/61
[2020-01-01] MEDS: FAMOTIDINE (20 MG) 20 MG TABLET PO SCH (05:43)
[2020-01-01 06:30] LABS: BASOPHILS % (AUTO) 0.6 % (0.0-2.0); EOSINOPHILS % (AUTO) 0.1 % (0.0-6.0); HEMATOCRIT 34 % (33-45); HEMOGLOBIN 11.4 g/dL (11.5-14.8); LYMPHOCYTES # (AUTO) 1.3 /CMM (0.8-4.8); LYMPHOCYTES % (AUTO) 37.9 % (20.0-44.0); MEAN CORPUSCULAR HGB CONC 33 g/dl (31.0-36.0); MEAN CORPUSCULAR VOLUME 98 fL (82-100); MONOCYTES # (AUTO) 0.6 /CMM (0.1-1.30); MONOCYTES % (AUTO) 15.7 % (2.0-12.0); NEUTROPHILS # (AUTO) 1.6 /CMM (1.8-8.9); NEUTROPHILS % (AUTO) 45.7 % (43.0-81.0); PLATELET COUNT (AUTO) 220 /CMM (150-450); RED BLOOD CELL COUNT(AUTO) 3.51 MIL/uL (4.0-5.2); WHITE BLOOD COUNT (AUTO) 3.5 K/uL (4.3-11.0)
[2020-01-01 06:51] LABS: ALANINE AMINOTRANSFERASE 14 U/L (12-78); ALKALINE PHOSPHATASE 61 U/L (46-116); ASPARTATE AMINOTRANSFERASE 29 U/L (15-37); BILIRUBIN,TOTAL 0.4 mg/dL (0.2-1.0); CALCIUM, SERUM 8.5 mg/dL (8.5-10.1); CARBON DIOXIDE 25 mmol/L (21-32); CHLORIDE 103 mmol/L (98-107); CREATININE 3.2 mg/dL (0.6-1.3); GLUCOSE 93 mg/dL (74-106); MAGNESIUM 2.4 mg/dL (1.8-2.4); PHOSPHORUS 3.8 mg/dL (2.5-4.9); POTASSIUM 3.4 mmol/L (3.5-5.1); SODIUM SERUM 140 mmol/L (136-145); TOTAL PROTEIN, SERUM 6.4 g/dL (6.4-8.2); UREA NITROGEN, BLOOD 45 mg/dL (7-18)
--- NOTE | 2020-01-01 07:36 | NUR ---
CHIEF RESOURCE OFFICER CLOSING NOTES PATIENT SLEEPING, OPENS EYES TO TOUCH, NONVERBAL. A/OX1-2. ON RA; NO S/S OF ACUTE RESPIRATORY DISTRESS; BREATHING IS EVEN AND UNLABORED. NO S/S OF PAIN NOTED. TELE MONITOR READING SINUS TACH. IV PRESENT ON LEFT FA, SIZE 20, INTACT & PATENT WITH NS RUNNING TKO. SAFETY MEASURES IN PLACE AND PATIENT'S NEEDS MET. BED LOCKED, ALARM ON, HOB ELEVATED, SIDE RAILS X2, CALL LIGHT WITHIN REACH. ENDORSED TO DAY SHIFT RN PLAN OF CARE.
[2020-01-01 08:00] VITALS: BP 117/71
[2020-01-01] MEDS: ENSURE ENLIVE CHOC 237 ML CAN PO SCH ×3 (08:03→16:56)
--- NOTE | 2020-01-01 08:08 | NUR ---
BPM DEVELOPER OPENING SHIFT NOTES PATIENT RESTING IN BED, A/O X1-2. NONVERBAL, NODS AND RESPONDS TO VERBAL COMMANDS. PT ON TELE READING TACHY IN LOW 100'S. PT BEDRIDDEN. ON PUREE NECTAR DIET. NO C/O PAIN. PATIENT ON RA WITH NO C/O SOB, NO ACUTE RESPIRATORY DISTRESS NOTED. IV TO LTFA #20G PATENT AND INTACT FLUSHING WELL WITH NO SIGNS OF REDNESS OR SWELLING NOTED. BED IS AT LOWEST POSITION WITH SIDE RAILS UPX2 AND CALL LIGHT WITHIN REACH. WILL CONTINUE TO MONITOR THROUGH SHIFT.
[2020-01-01 08:35] LABS: LYMPHOCYTES % (MANUAL) 41 % (16-48); MONOCYTES % (MANUAL) 9 % (0-11.0); NEUTROPHILS % (MANUAL) 50 (42-76)
[2020-01-01] MEDS: DOXYCYCLINE HYCLATE (100 MG) 100 MG TABLET PO SCH ×2 (08:40→20:19)
[2020-01-01] MEDS: ASCORBIC ACID 500 MG TABLET PO SCH ×2 (08:40→16:56)
[2020-01-01] MEDS: DOCUSATE SODIUM 100 MG CAPSULE PO SCH ×2 (08:40→16:56)
[2020-01-01] MEDS: ZINC SULFATE 220 MG CAPSULE PO SCH (08:40)
[2020-01-01] MEDS: MUPIROCIN OINT 2% 22 GM TUBE SCH ×2 (08:46→20:27)
[2020-01-01] MEDS ORDERED: VANCOMYCIN 0.75 GM in IV D5W 250 ML IV SCH (09:00)
[2020-01-01] MEDS ORDERED: POTASSIUM CHLORIDE 20 MEQ TAB.PRT.SR PO ONE (15:30)
[2020-01-01 16:00] VITALS: BP 118/70
--- NOTE | 2020-01-01 18:19 | NUR ---
RN MS CLOSING NOTES PATIENT RESTING IN BED, A/O X1-2. NONVERBAL, NODS AND RESPONDS TO VERBAL COMMANDS. PT BEDRIDDEN. ON PUREE NECTAR DIET. NO C/O PAIN. PATIENT ON RA WITH NO C/O SOB, NO ACUTE RESPIRATORY DISTRESS NOTED. IV TO LTFA #20G; SL- PATENT AND INTACT FLUSHING WELL WITH NO SIGNS OF REDNESS OR SWELLING NOTED. BED IS AT LOWEST POSITION WITH SIDE RAILS UPX2 AND CALL LIGHT WITHIN REACH. WILL ENDORSE TO ONCOMING SHIFT
--- NOTE | 2020-01-01 19:00 | NUR ---
RN MS OPENING NOTES RECEIVED PATIENT IN BED AWAKE ALERT AND ORIENTED X 1-2 , NONVERBAL ABLE TO NOD HEAD TO COMMANDS, RESPIRATIONS EVEN AND UNLABORED WITH EQUAL RISE AND FALL OF CHEST, APPEARS COMFORTABLE AT THIS TIME, HEAD OF BED ELEVATED, IV SITE INTACT, NO REDNESS, NO INFILTRATION , SAFETY PRECAUTIONS RENDERED, LOW BED AND LOCKED, ISOLATION PRECAUTIONS RENDERED, ORIENTED TO STAFF AND CALL LIGHT AND KEPT WITHIN REACH, ALL NEEDS ATTENDED WILL CONTINUE TO MONITOR AND ATTEND TO NEEDS.
[2020-01-01 20:00] VITALS: BP 131/70
[2020-01-01] MEDS: LEVOFLOXACIN (250MG) 250 MG TABLET PO SCH (20:19)
--- NOTE | 2020-01-01 23:00 | NUR ---
RN MS NOTES PATIENT REMAINS STABLE , REPORT GIVEN TO MENDEZ.
--- NOTE | 2020-01-01 23:06 | NUR ---
RN NOTES PATIENT RECEIVED RESTING IN BED, A/O X1. STABLE ON RA WITH BREATHING EVEN AND UNLABORED. NO SOB NOTED. NO SIGNS OF ACUTE DISTRESS. BED IN LOWEST POSITION, BREAKS ON. WILL CONTINUE TO MONITOR THROUGHOUT THE NIGHT. PREVIOUS ISOLATION D/C 'D.
[2020-01-02] MEDS: FAMOTIDINE (20 MG) 20 MG TABLET PO SCH (05:44)
[2020-01-02 06:32] LABS: BASOPHILS % (AUTO) 0.7 % (0.0-2.0); EOSINOPHILS % (AUTO) 0.1 % (0.0-6.0); HEMATOCRIT 35 % (33-45); HEMOGLOBIN 11.4 g/dL (11.5-14.8); LYMPHOCYTES # (AUTO) 1.1 /CMM (0.8-4.8); LYMPHOCYTES % (AUTO) 34.4 % (20.0-44.0); MEAN CORPUSCULAR HGB CONC 33 g/dl (31.0-36.0); MEAN CORPUSCULAR VOLUME 97 fL (82-100); MONOCYTES # (AUTO) 0.5 /CMM (0.1-1.30); NEUTROPHILS # (AUTO) 1.5 /CMM (1.8-8.9); NEUTROPHILS % (AUTO) 48.8 % (43.0-81.0); PLATELET COUNT (AUTO) 193 /CMM (150-450); RED BLOOD CELL COUNT(AUTO) 3.55 MIL/uL (4.0-5.2); WHITE BLOOD COUNT (AUTO) 3.1 K/uL (4.3-11.0)
[2020-01-02 06:38] LABS: CALCIUM, SERUM 8.7 mg/dL (8.5-10.1); CARBON DIOXIDE 29 mmol/L (21-32); CHLORIDE 104 mmol/L (98-107); CREATININE 3.3 mg/dL (0.6-1.3); GLUCOSE 92 mg/dL (74-106); SODIUM SERUM 140 mmol/L (136-145); UREA NITROGEN, BLOOD 50 mg/dL (7-18)
--- NOTE | 2020-01-02 06:50 | NUR ---
RN CLOSING NOTES PATIENT IN BED RESTING, A/O X 2 NON VERBAL, ABLE TO NOD. STABLE ON RA WITH BREATHING EVEN AND UNLABORED, NO SOB NOTED. NO SIGNS OF ACUTE DISTRESS. NO SIGNS OF PAIN OR DISCOMFORT NOTED- NO FACIAL GRIMACING NOTED. IV LOCATED ON R FA #22 SL. SAFETY PRECAUTIONS IN PLACE WITH BED IN LOWEST POSITION, CALL LIGHT WITHIN REACH, BREAKS ON, SIDE RAILS UP. ALL NEEDS ATTENDED TO. PATIENT KEPT CLEAN AND DRY. WILL ENDORSE TO ONCOMING SHIFT ABOUT WOOD.
--- NOTE | 2020-01-02 07:30 | NUR ---
RN OPENING NOTES RECEIVED PATIENT IN BED AWAKE ALERT AND ORIENTED X 1-2 , NONVERBAL. NO CARDIAC OR RESP DISTRESS NOTED. NO SOB NOTED. RESPIRATIONS EVEN AND UNLABORED, SATURATING WELL ON ROOM AIR. IV SITE INTACT ON RFA G22. INTACT AND PATENT AND FLUSHING WELL. NO REDNESS, NO INFILTRATION , SAFETY PRECAUTIONS RENDERED, BED LOCKED AND IN LOW POSITION. SIDE RAIL;S UP. BED ALARM ON. CALL LIGHT WITHIN REACH. ALL NEEDS ATTENDED WILL CONTINUE TO MONITOR AND ATTEND TO NEEDS.
[2020-01-02 08:00] VITALS: BP 142/77
[2020-01-02] MEDS: ZINC SULFATE 220 MG CAPSULE PO SCH (08:17)
[2020-01-02] MEDS: DOCUSATE SODIUM 100 MG CAPSULE PO SCH ×2 (08:17→16:38)
[2020-01-02] MEDS: ENSURE ENLIVE CHOC 237 ML CAN PO SCH ×3 (08:17→16:38)
[2020-01-02] MEDS: ASCORBIC ACID 500 MG TABLET PO SCH ×2 (08:17→16:38)
[2020-01-02] MEDS: DOXYCYCLINE HYCLATE (100 MG) 100 MG TABLET PO SCH ×2 (08:18→20:25)
[2020-01-02 08:31] LABS: LYMPHOCYTES % (MANUAL) 33 % (16-48); NEUTROPHILS % (MANUAL) 50 (42-76)
[2020-01-02 08:32] LABS: BASOPHILS % (MANUAL) 0 % (0.0-2.0); EOSINOPHILS % (MANUAL) 1 % (0-4); MONOCYTES % (MANUAL) 16 % (0-11.0)
[2020-01-02] MEDS: IV 1/2NS 1000 ML 1,000 ML IV SCH ×2 (09:37→19:40)
[2020-01-02 16:00] VITALS: BP 152/77
--- NOTE | 2020-01-02 18:24 | NUR ---
RN CLOSING NOTES PATIENT IN BED AWAKE ALERT AND ORIENTED X 1-2 , NONVERBAL. NO CARDIAC OR RESP DISTRESS NOTED. NO SOB NOTED. RESPIRATIONS EVEN AND UNLABORED, SATURATING WELL ON ROOM AIR. IV SITE INTACT ON RFA G22. WITH 1/2 NS RUNNING AT 100ML/HR. TOLERATING IV FLUIDS WELL. IV INTACT AND PATENT AND FLUSHING WELL. NO REDNESS, NO INFILTRATION , KEPT PT CLEAN AND DRY. ALL NEEDS MET ATTENDED. ALL DUE MEDS ADMINISTERED. SAFETY PRECAUTIONS RENDERED, BED LOCKED AND IN LOW POSITION. SIDE RAILS UP. BED ALARM ON. CALL LIGHT WITHIN REACH. ALL NEEDS ATTENDED WILL CONTINUE TO MONITOR AND ATTEND TO NEEDS.
--- NOTE | 2020-01-02 18:50 | NUR ---
LAB CALLED. PTS LACTIC ACID LEVELS ARE AT 2.[address]. [address]IF[address] DR. HOBBS. NO ORDERS GIVEN. IS AWARE. STATED, 'ITS FINE. THANKS.'
--- NOTE | 2020-01-02 19:38 | NUR ---
RN OPENING NOTES PATIENT RECEIVED IN BED AWAKE ALERT AND ORIENTED X 1-2 , NONVERBAL. STABLE ON RA WITH BREATHING EVEN AND UNLABORED, NO SOB NOTED. NO SIGNS OF ACUTE DISTRESS. NO SIGNS IF PAIN OR DISCOMFORT AT THE MOMENT. IV SITE ON RFA #22 RUNNING 1/2 NS @ 100 ML/HR. SAFETY PRECAUTIONS IN PLACE WITH BED IN LOWEST POSITION, CALL LIGHT WITHIN REACH, BREAKS ON, SIDE RAILS UP. WILL CONTINUE TO MONITOR THROUGHOUT THE NIGHT.
[2020-01-02 20:00] VITALS: BP 156/90
[2020-01-02] MEDS: LEVOFLOXACIN (250MG) 250 MG TABLET PO SCH (20:25)
[2020-01-02 21:33] LABS: BILIRUBIN,DIRECT 0.1 mg/dL (0.0-0.2); BILIRUBIN,TOTAL 0.3 mg/dL (0.2-1.0)
[2020-01-03] MEDS: FAMOTIDINE (20 MG) 20 MG TABLET PO SCH (05:53)
--- NOTE | 2020-01-03 05:53 | NUR ---
RN NOTES NON-ADMINISTERED SCHEDULE PEPCID. PATIENT UNABLE TO SWALLOW CRUSHED MEDICATION, SPIT IT OUT INSTEAD. WILL ENDORSE TO ONCOMING SHIFT FOR SWALLOW EVAL.
[2020-01-03] MEDS: IV 1/2NS 1000 ML 1,000 ML IV SCH (05:54)
[2020-01-03 06:23] LABS: BASOPHILS % (AUTO) 0.7 % (0.0-2.0); EOSINOPHILS % (AUTO) 0.1 % (0.0-6.0); HEMATOCRIT 31 % (33-45); HEMOGLOBIN 10.2 g/dL (11.5-14.8); LYMPHOCYTES # (AUTO) 1.2 /CMM (0.8-4.8); LYMPHOCYTES % (AUTO) 31.2 % (20.0-44.0); MEAN CORPUSCULAR HGB CONC 34 g/dl (31.0-36.0); MEAN CORPUSCULAR VOLUME 97 fL (82-100); MONOCYTES # (AUTO) 0.4 /CMM (0.1-1.30); MONOCYTES % (AUTO) 11.3 % (2.0-12.0); NEUTROPHILS # (AUTO) 2.1 /CMM (1.8-8.9); NEUTROPHILS % (AUTO) 56.7 % (43.0-81.0); PLATELET COUNT (AUTO) 183 /CMM (150-450); RED BLOOD CELL COUNT(AUTO) 3.15 MIL/uL (4.0-5.2); WHITE BLOOD COUNT (AUTO) 3.8 K/uL (4.3-11.0)
--- NOTE | 2020-01-03 06:50 | NUR ---
RN CLOSING NOTES PATIENT IN BED AWAKE ALERT AND ORIENTED X 1-2 , NONVERBAL. STABLE ON RA WITH BREATHING EVEN AND UNLABORED, NO SOB NOTED. NO SIGNS OF ACUTE DISTRESS. NO SIGNS IF PAIN OR DISCOMFORT AT THE MOMENT. IV SITE ON RFA #22 RUNNING 1/2 NS @ 100 ML/HR. SAFETY PRECAUTIONS IN PLACE WITH BED IN LOWEST POSITION, CALL LIGHT WITHIN REACH, BREAKS ON, SIDE RAILS UP. ALL NEEDS ATTENDED TO. PATIENT KEPT CLEAN AND DRY THROUGHOUT THE NIGTH. WILL ENDORSE TO ONCOMING SHIFT ABOUT WOOD,.
[2020-01-03 06:59] LABS: CARBON DIOXIDE 24 mmol/L (21-32); CHLORIDE 105 mmol/L (98-107); CREATININE 2.9 mg/dL (0.6-1.3); GLUCOSE 94 mg/dL (74-106); MAGNESIUM 2.2 mg/dL (1.8-2.4); POTASSIUM 3.5 mmol/L (3.5-5.1); SODIUM SERUM 139 mmol/L (136-145); UREA NITROGEN, BLOOD 54 mg/dL (7-18)
--- NOTE | 2020-01-03 07:17 | NUR ---
MS RN OPENING NOTES RECEIVED PATIENT IN BED, ASLEEP. PATIENT ON ROOM AIR; BREATHING EVEN AND UNLABORED; NO SOB NOTED. NO S/S OF PAIN SUCH FACIAL GRIMACING, MOANING OR GUARDING. RFA # 22 INTACT AND INFUSING 1/2 NS AT 100 MLS/HR. 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 WILL FOLLOW UP. SAFETY PRECAUTIONS IN PLACE; BED IN LOW POSITION AND LOCKED, HOB ELEVATED AT 30%, RAILS UP X2, CALL LIGHT WITHIN REACH. WILL CONTINUE TO MONITOR PATIENT.
[2020-01-03 08:00] VITALS: BP 131/82
[2020-01-03] MEDS: ENSURE ENLIVE CHOC 237 ML CAN PO SCH ×2 (08:06→11:29)
[2020-01-03] MEDS ORDERED: DOXY100T2 PO (08:52)
[2020-01-03] MEDS ORDERED: Levofloxacin (250MG) PO (08:52)
[2020-01-03] MEDS: DOCUSATE SODIUM 100 MG CAPSULE PO SCH (08:54)
[2020-01-03] MEDS: DOXYCYCLINE HYCLATE (100 MG) 100 MG TABLET PO SCH (08:54)
[2020-01-03] MEDS: ZINC SULFATE 220 MG CAPSULE PO SCH (08:54)
[2020-01-03] MEDS: ASCORBIC ACID 500 MG TABLET PO SCH (08:54)
--- NOTE | 2020-01-03 14:13 | NUR ---
MS COOLER MAN NOTES PATIENT DISCHARGED BACK TO SNF IN MEDICALLY STABLE CONDITION. PATIENT ON ROOM AIR; BREATHING IS EVEN AND UNLABORED; NO SOB. VITAL SIGNS TAKEN AND WITHIN NORMAL LIMITS. ALL DOCUMENTATION PREPARED AND SIGNED BY 2 RNs SINCE PATIENT IS A/O X1 AND NOT ABLE TO SIGN HERSELF. BELONGINGS ACCOUNTED FOR AND FORM SIGNED WELL. PHOTOS TAKEN AND FILED. FACILITY CALLED AND REPORT GIVEN TO JOYCELYN MCGUIRE (RECEIVING NURSE). LET MAYNOR KNOW THAT PATIENT IS TO HAVE FOLLOW UP APPOINTMENT WITH ONCOLOGIST DR. LOPEZ; BUSINESS CARD INCLUDED IN THE FOLDER. PATIENT WAS ACCOMPANIED BY 2 lay out inspector AND LEFT THE FLOOR AT 1420
== END 2020-01-03 14:30 | DRG 177 ==
LOC: ER 16:49 → TELE2 20:31 → TELE 12-26 17:57 → MED 01-01 11:00
PROVIDERS: ADMIT Internal Medicine; ATTEND Family Medicine
DX: J85.0 Gangrene and necrosis of lung (principal); G93.41 Metabolic encephalopathy; N17.0 Acute kidney failure with tubular necrosis; I10 Essential (primary) hypertension; E78.5 Hyperlipidemia, unspecified; F03.90 Unspecified dementia, unspecified severity, without behavioral disturbance, psychotic disturbance, mood disturbance, and anxiety; I27.20 Pulmonary hypertension, unspecified; D72.819 Decreased white blood cell count, unspecified; D63.8 Anemia in other chronic diseases classified elsewhere; K80.20 Calculus of gallbladder without cholecystitis without obstruction; N14.1 Nephropathy induced by other drugs, medicaments and biological substances; T50.8X5A Adverse effect of diagnostic agents, initial encounter; Y92.89 Other specified places as the place of occurrence of the external cause; Z85.118 Personal history of other malignant neoplasm of bronchus and lung; Z22.322 Carrier or suspected carrier of Methicillin resistant Staphylococcus aureus
CPT/HCPCS: 36415; 71045-TC; 76770-TC; 80048-TC; 80053-TC; 80076-TC; 80202-TC; 82247-TC; 82248-TC; 82378; 82728-TC; 82784; 83540-TC; 83605-TC; 83735-TC; 84100-TC; 84155; 84165; 85025-TC; 85378-TC; 85610-TC; 85730-TC; 86334; 86480; 87040-TC; 87070-TC; 87081-TC; 92526; 92611-TC; G0378; J0692; J2185; J2405; J2543; J3370; J3480; J3490; J7030; J7040; J7050; J7060; Q9967; U0003

== ENCOUNTER 2020-04-03 14:28 | Inpatient (IN) | payer MEDICARE ==
[~2020-04-03] VITALS: Ht 165.1 cm; Wt 52.2 kg
[~2020-04-03 14:28] MED LIST: ACET-868 GT; ALBU2.5V13 IH; ASCO-352 GT; BISA10SU11 RC; DOCU-141 GT; DOXY100T2 PO; FAMO20TA8 PO; IBUP-2715 PO; LOSA50TA39 PO; Levofloxacin (250MG) PO; MAGN400O6 GT; ZINC1CAP2 PO
--- NOTE | 2020-04-03 14:28 | NUR ---
PT BIBPA FROM [facility] C/O CONGESTION AND LOW O2 SAT. PT IS AAOX0, NOTED MILD RESPIRATORY DISTRESS AND CONGESTION. HOOKED TO O2 VIA NC AT 5LPM, HOOKED TO SLURRY MAN, KEPT RESTED AND COMFORTABLE. WILL CONTINUE TO MONITOR.
--- NOTE | 2020-04-03 14:48 | NUR ---
PT SEEN AND EXAMINED BY .
[2020-04-03] MEDS ORDERED: methylPREDNISolone SOD SUCC 125 MG/2ML VIAL ONE (14:53)
--- NOTE | 2020-04-03 14:56 | NUR ---
IV LINE ESTABLISHED BLOOD DRAWN ADN SENT TO LAB.
[2020-04-03] MEDS ORDERED: IPRATROPIUM NEB FS 0.5 MG/2.5 ML AMPUL.NEB NEB ONE (15:00)
[2020-04-03] MEDS ORDERED: methylPREDNISolone SOD SUCC 125 MG/2ML VIAL IV ONE (15:00)
[2020-04-03] MEDS ORDERED: ALBUTEROL FS 2.5 MG/3 ML VIAL.NEB NEB ONE (15:00)
[2020-04-03] MEDS ORDERED: IV NS 0.9% 1,000 ML IV ONE (15:00)
--- NOTE | 2020-04-03 15:00 | NUR ---
RT AT BEDSIDE FOR BREATHING TX AND ABG.
[2020-04-03] MEDS ORDERED: ALBUTEROL FS 2.5 MG/3 ML VIAL.NEB ONE (15:07)
[2020-04-03] MEDS ORDERED: IPRATROPIUM NEB FS 0.5 MG/2.5 ML AMPUL.NEB ONE (15:07)
--- NOTE | 2020-04-03 15:15 | NUR ---
OTA AT BEDSIDE FOR XRAY.
[2020-04-03 15:30] LABS: BASOPHILS % (AUTO) 0.1 % (0.0-2.0); HEMATOCRIT 32 % (33-45); HEMOGLOBIN 10.5 g/dL (11.5-14.8); LYMPHOCYTES # (AUTO) 0.8 /CMM (0.8-4.8); MEAN CORPUSCULAR HGB CONC 33 g/dl (31.0-36.0); MEAN CORPUSCULAR VOLUME 102 fL (82-100); MONOCYTES # (AUTO) 0.5 /CMM (0.1-1.30); MONOCYTES % (AUTO) 2.8 % (2.0-12.0); NEUTROPHILS # (AUTO) 17.8 /CMM (1.8-8.9); NEUTROPHILS % (AUTO) 93.1 % (43.0-81.0); PLATELET COUNT (AUTO) 407 /CMM (150-450); RED BLOOD CELL COUNT(AUTO) 3.15 MIL/uL (4.0-5.2); WHITE BLOOD COUNT (AUTO) 19.1 K/uL (4.3-11.0)
[2020-04-03] MEDS ORDERED: ACETAMINOPHEN 650 MG/SUPP.RECT RC ONE ×2 (15:30→15:35)
[2020-04-03 15:47] LABS: CALCIUM, SERUM 9.9 mg/dL (8.5-10.1); CREATININE 0.8 mg/dL (0.6-1.3); POTASSIUM 4.1 mmol/L (3.5-5.1)
[2020-04-03] MEDS ORDERED: CEFEPIME 1 GM in IV D5W 50 ML IV ONE (16:00)
[2020-04-03] MEDS ORDERED: VANCOMYCIN 1 GM in IV D5W 250 ML IV ONE (16:00)
[2020-04-03 16:01] LABS: ALBUMIN 2.3 g/dL (3.4-5.0); BILIRUBIN,DIRECT 0.1 mg/dL (0.0-0.2); BILIRUBIN,TOTAL 0.5 mg/dL (0.2-1.0); TOTAL PROTEIN, SERUM 8.6 g/dL (6.4-8.2)
--- NOTE | 2020-04-03 16:05 | NUR ---
called pharmacy for iv antibiotic.
--- NOTE | 2020-04-03 16:39 | NUR ---
LAB CALLED. COVID RESULTS NEGATIVE.
[2020-04-03] MEDS ORDERED: IV NS 0.9% 500 ML BAG IV ONE (17:00)
--- NOTE | 2020-04-03 17:07 | NUR ---
PAGED EPIC FOR A PANEL
[2020-04-03 17:23] LABS: BAND % (MANUAL) 1 % (0.0-5.0); LYMPHOCYTES % (MANUAL) 5 % (16-48); MONOCYTES % (MANUAL) 1 % (0-11.0); NEUTROPHILS % (MANUAL) 93 (42-76)
[2020-04-03] MEDS ORDERED: ONDANSETRON HCL/PF 4 MG/2 ML VIAL IVP PRN (17:30)
[2020-04-03] MEDS ORDERED: ACETAMINOPHEN 325 MG TABLET PO PRN (17:30)
[2020-04-03] MEDS ORDERED: Z GUARD REMEDY 2 OZ OINT TP PRN (17:30)
[2020-04-03] MEDS ORDERED: MORPHINE SULFATE INJ 2 MG/ML DISP.SYRIN IV PRN (17:30)
[2020-04-03] MEDS ORDERED: MAG HYDROX/AL HYDROX/SIMETH 30 ML UDC PO PRN (17:30)
[2020-04-03] MEDS ORDERED: ALBUTEROL SULFATE INH 18 GM HFA.AER.AD IH PRN (17:30)
[2020-04-03] MEDS ORDERED: HYDROCODONE/APAP 5/325MG TABLET PO PRN (17:30)
[2020-04-03] MEDS ORDERED: MAGNESIUM HYDROXIDE 30 ML UDC PO PRN (17:30)
--- NOTE | 2020-04-03 17:40 | NUR ---
REPORT GIVEN TO JOYCELYN FUCHS FOR WOOD.
--- NOTE | 2020-04-03 18:35 | NUR ---
MARRIAGE THERAPIST ADMITTING NOTES ADMISSION ARRIVED TO THE FLOOR AT 1830. PATIENT ASLEEP, MEDICALLY STABLE. PATIENT ON OXYGEN THERAPY AT 5LPM VIA NASAL CANNULA SATURATING WELL. VITAL SIGNS WNL. RAC G # 18 PRESENT AND INTACT. SAFETY PRECAUTIONS IN PLACE; BED IN LOW POSITION AND LOCKED, RAILS UP X2, CALL LIGHT WITHIN REACH. WILL CONTINUE TO MONITOR PATIENT.
[2020-04-03 18:39] LABS: D-DIMER 1.61 mg/L(FEU (0.17-0.50)
[2020-04-03] MEDS: DEXAMETHASONE SOD PHOSPHATE 10 MG/ML VIAL IV SCH (18:46)
--- NOTE | 2020-04-03 19:28 | NUR ---
TORCH HEATER CLOSING NOTES PATIENT REMAINS ASLEEP IN BED. ON OXYGEN THERAPY AT 5 LPM VIA NASAL CANNULA. NO DISTRESS NOTED. NO S/S OF PAIN SUCH FACIAL GRIMACING, MOANING OR GUARDING. G-TUBE PRESENT AND INTACT. ACKERMAN IN PLACE DRAINING CLEAR, YELLOW URINE. SAFETY PRECAUTIONS IN PLACE; BED IN LOW POSITION AND LOCKED, RAILS UP X2, CALL LIGHT WITHIN REACH. WOOD ENDORSED TO NIGHT CUSTODIAN NURSE.
--- NOTE | 2020-04-03 19:30 | NUR ---
distribution operations manager opening notes Received Pt from morning nurse. Pt is resting in bed comfortably. Pt is alert and orientedX1. Respiration on 5 L NC with O2 sat is 100%. No SOB. No S/S of distress noted. IV site at RAC# 18 is clean, intact and flushes well. Tele monitor showed Sinus tachy Hr at 113 bpm. G-tube is intact and patent. Elise cath is intact and draining yellow urine. Skin assessment is done, performed and documented. Small open wound on sacrum and Picture is taken. Wound care consult is ordered. Safety precautions is maintained. Bed at low position, brakes locked, side rails upX2 and call light is within reach. Will continue to monitor.
[2020-04-03 20:00] VITALS: BP 114/70
[2020-04-03] MEDS: IV NS 0.9% 1,000 ML IV PRN (20:05)
[2020-04-03] MEDS: MEROPENEM 1 G in IV NS 0.9% 100 ML IV SCH (20:44)
[2020-04-03] MEDS: ENOXAPARIN SODIUM 40 MG/0.4 ML DISP.SYRIN SQ SCH (20:50)
--- NOTE | 2020-04-03 21:00 | NUR ---
veneer drier notes Informed and notified MD regarding Pt's Gtube feeding. MD ordered to resume the feeding Jevity 1.2 valentina @ 65 ml/hr. Order carried out.
[2020-04-03] MEDS ORDERED: JEVITY 1.2 CAL 1,000 ML BOTTLE GT PRN (23:00)
[2020-04-04] VITALS: BP 107/56
[2020-04-04 00:57] LABS: C-REACTIVE PROTEIN 9.5 mg/dL (0.0-0.9)
--- NOTE | 2020-04-04 01:08 | NUR ---
laborer beam house notes Pt keep removing oxygen, tubing and spitting to staff. Informed Pt multiple times. Pt is alert and orientedX1 and non compliant with care. Informed and notified MAMTA Rivas. ORGANIC PREPARATION ANALYST ordered bilateral soft wrist restraints. Order carried out. Will continue to monitor.
[2020-04-04 04:00] VITALS: BP 101/57
--- NOTE | 2020-04-04 06:32 | NUR ---
general car yard supervisor closing notes Pt is resting in bed comfortably. Pt is alert and orientedX2 with episode of confusion. Respiration on 5 L NC with O2 sat is 100%. No SOB. No S/S of distress noted. IV site at RAC# 18 is clean, intact and infusing well NS@ 75 ml/hr. VS is stable. Afebrile. Tele monitor showed Sinus rhytm Hr at 92 bpm. G-tube is intact and patent and infuising well jevity 1.2 @ 65 ml/hr with 0 residual. Pt tolerated well. Elise cath is intact and draining yellow urine 300 ml. Kept Pt clean, dry and comfortable. All needs met and attended. Safety precautions is maintained. Bed at low position, brakes locked, hob elevated, side rails upX2 and call light is within reach. Will endorse to morning nurse for WOOD. Addendum: 04/04/20 at 0654 by ALEX WALDEN RN Bilateral soft wrist restraints are intact, skin is warm to touch and circulation is checks Q 2 Hr.
[2020-04-04 06:34] LABS: BASOPHILS % (AUTO) 0.2 % (0.0-2.0); HEMATOCRIT 28 % (33-45); HEMOGLOBIN 9.1 g/dL (11.5-14.8); LYMPHOCYTES # (AUTO) 0.8 /CMM (0.8-4.8); LYMPHOCYTES % (AUTO) 5.8 % (20.0-44.0); MEAN CORPUSCULAR HGB CONC 33 g/dl (31.0-36.0); MEAN CORPUSCULAR VOLUME 102 fL (82-100); MONOCYTES # (AUTO) 0.4 /CMM (0.1-1.30); MONOCYTES % (AUTO) 2.6 % (2.0-12.0); NEUTROPHILS # (AUTO) 13.3 /CMM (1.8-8.9); NEUTROPHILS % (AUTO) 91.4 % (43.0-81.0); PLATELET COUNT (AUTO) 277 /CMM (150-450); RED BLOOD CELL COUNT(AUTO) 2.75 MIL/uL (4.0-5.2); WHITE BLOOD COUNT (AUTO) 14.5 K/uL (4.3-11.0)
[2020-04-04 06:54] LABS: BILIRUBIN,URINE NEGATIVE (NEGATIVE); COLOR,URINE YELLOW (YELLOW); LEUKOCYTE ESTERASE ,URINE NEGATIVE (NEGATIVE); NITRITE, URINE NEGATIVE (NEGATIVE); PROTEIN,URINE TRACE mg/dl (NEGATIVE); UGLUCOSE NEGATIVE (NEGATIVE); UROBILINOGEN,URINE 0.2 EU/dL (0.2)
[2020-04-04 07:16] LABS: ALBUMIN 1.8 g/dL (3.4-5.0); BILIRUBIN,TOTAL 0.3 mg/dL (0.2-1.0); CALCIUM, SERUM 8.8 mg/dL (8.5-10.1); CREATININE 0.9 mg/dL (0.6-1.3); MAGNESIUM 2.1 mg/dL (1.8-2.4); PHOSPHORUS 2.8 mg/dL (2.5-4.9); TOTAL PROTEIN, SERUM 7.2 g/dL (6.4-8.2)
--- NOTE | 2020-04-04 07:44 | NUR ---
PROPERTY ANALYST NOTE PATIENT IN BED RESTING COMFORTABLY. PATIENT IN NO ACUTE DISTRESS. NO SOB NOTED. PATIENT BREATHING IS EVEN AND UNLABORED. PATIENT ON CARDIAC MONITORING READING SINUS RHYTHM HR 90. PATIENT SAFETY PRECAUTIONS IN PLACE. PATIENT BED ALARM IS ON. PATIENT BED IS LOCKED AND IN LOWEST POSITION. CALL LIGHT WITHIN REACH. WILL CONTINUE TO MONITOR.
[2020-04-04 08:00] VITALS: BP 125/56
[2020-04-04 08:25] LABS: BACTERIA,URINE Rare /HPF (None Seen); SQUAMOUS EPITHELIAL CELL,UR Rare /HPF (None Seen); WBC,URINE 0-2 /HPF (0-3)
[2020-04-04 08:26] LABS: CALCIUM OXALATE CRYSTALS,UR Rare /HPF (None Seen)
[2020-04-04] MEDS: PANTOPRAZOLE 40 MG TABLET.DR PO SCH (08:40)
[2020-04-04] MEDS: DEXAMETHASONE SOD PHOSPHATE 10 MG/ML VIAL IV SCH (08:48)
[2020-04-04] MEDS: MEROPENEM 1 G in IV NS 0.9% 100 ML IV SCH ×2 (08:49→21:06)
[2020-04-04] MEDS ORDERED: NA P133E RC (08:56)
[2020-04-04] MEDS ORDERED: MULT-439 GT (08:56)
--- NOTE | 2020-04-04 10:08 | NUR ---
HEALTHCARE MARKET CONSULTANT NOTE REPORT GIVEN TO IMMACULATE RN FOR TRANSFER OF CARE. PATIENT TRANSFERRED TO ROOM 102 IN [place].
[2020-04-04 10:11] LABS: THYROID STIMULATING HORMONE 0.671 uIU/mL (0.358-3.74)
[2020-04-04] MEDS: IV NS 0.9% 1,000 ML IV PRN (11:46)
[2020-04-04] MEDS: JEVITY 1.2 CAL 1,000 ML BOTTLE GT PRN (11:49)
[2020-04-04 12:00] VITALS: BP 101/58
--- NOTE | 2020-04-04 15:00 | NUR ---
FAITH ([phone]), PT's DAUGHTER, CALLED AND WAS UPDATED, WILL CONTINUE TO MONITOR AND CONTINUE WITH PLAN OF CARE.
[2020-04-04 16:00] VITALS: BP 104/57
[2020-04-04] MEDS ORDERED: VANCOMYCIN HCL 0.75 GM in IV D5W 250 ML IV SCH (17:00)
--- NOTE | 2020-04-04 18:22 | NUR ---
TINSMITH APPRENTICE CLOSING NOTES PT AWAKE IN BED AT THIS TIME. PT REMAINED STABLE THROUGHOUT SHIFT. PT REMAINED STABLE ON OXYGEN @ 5LPM VIA NC SATURATING @ 100% AT THIS TIME. ALL CARE, NEED, MEDICATIONS AND TREATMENT ADMINISTERED ANTICIPATED PER ORDER. PT KEPT CLEAN AND DRY. BED BATH GIVEN, LINEN CHANGED AND KEPT CLEAN. MEPILEX ON SACRAL AREA. PT TOLERATED TUBE FEEDING WITH NO RESIDUAL NOTED. G-TUBE IN PLACE AND KEPT CLEAN. PT REPOSITIONED Q2HRS AND PRN. BILATERAL SOFT WRIST RESTRAINTS ASSESSED Q2HRS AND PRN, SKIN AROUND RESTRAINS INTACT, GOOD CIRCULATION NOTES, PULSES ARE PRESENT BILATERALLY, CAPILLARY REFILL<3SECONDS. ACKERMAN CATHETER CARE PROVIDED. ASPIRATION, RESPIRATION AND SAFETY PRECAUTION IN PLACE AND MAINTAINED AT ALL TIMES. BED IN LOWEST LOCKED POSITION, HOB ELEVATED, SIDE RAILS UP X 2, CALL LIGHT AND TABLE WITHIN REACH. ENDORSED TO WHITE GOODS APPLIANCE TECH NURSE FOR WOOD
--- NOTE | 2020-04-04 19:30 | NUR ---
TELE/RN OPENING NOTES RECEIVED PATIENT IN BED RESTING. PATIENT IS ALERT AND ORIENTED X 2. PATIENT BREATHING IS EVEN AND UNLABORED. NO SIGNS OF SOB OR RESPIRATORY DISTRESS NOTED. PATIENT IN NO SIGNS OF DISTRESS. IV ACCESS IN PLACE FLUSHING WELL. SAFETY MEASURES ARE IN PLACE. BED IS LOCKED AND PLACED IN THE LOW POSITION, SIDE RAILS UP X 2, CALL LIGHT IS WITHIN REACH. WILL CONTINUE TO MONITOR THROUGH OUT SHIFT.
[2020-04-04 20:00] VITALS: BP 107/55
[2020-04-04] MEDS: ENOXAPARIN SODIUM 40 MG/0.4 ML DISP.SYRIN SQ SCH (21:06)
[2020-04-05 04:00] VITALS: BP 122/62
--- NOTE | 2020-04-05 07:00 | NUR ---
TELE/RN CLOSING NOTES PATIENT IN BED SLEEPING EASY TO AROUSE. PATIENT IS ALERT AND ORIENTED X 2. PATIENT BREATHING IS EVEN AND UNLABORED. NO SIGNS OF SOB OR RESPIRATORY DISTRESS NOTED. PATIENT IN NO SIGNS OF DISTRESS. IV ACCESS IN PLACE FLUSHING WELL. ALL NEEDS HAVE BEEN MET DURING SHIFT. PATIENT SUCTIONED PRN THROUGH OUT SHIFT. SAFETY MEASURES ARE IN PLACE. BED IS LOCKED AND PLACED IN THE LOW POSITION, SIDE RAILS UP X 2, CALL LIGHT IS WITHIN REACH. WILL ENDORSE CARE TO DAY SHIFT NURSE.
[2020-04-05 08:00] VITALS: BP 123/82
[2020-04-05 08:04] LABS: CARBON DIOXIDE 25 mmol/L (21-32); CHLORIDE 114 mmol/L (98-107); CREATININE 0.4 mg/dL (0.6-1.3); GLUCOSE 99 mg/dL (74-106); POTASSIUM 4.1 mmol/L (3.5-5.1); SODIUM SERUM 145 mmol/L (136-145); UREA NITROGEN, BLOOD 33 mg/dL (7-18)
--- NOTE | 2020-04-05 08:06 | NUR ---
SEC REPORTING CONSULTANT NOTE PATIENT IN BED RESTING COMFORTABLY. PATIENT IN NO ACUTE DISTRESS. NO SOB NOTED. PATIENT BREATHING IS EVEN AND UNLABORED. PATIENT SAFETY PRECAUTIONS IN PLACE. PATIENT BED IS LOCKED AND IN LOWEST POSITION. CALL LIGHT WITHIN REACH. WILL CONTINUE TO MONITOR.
[2020-04-05] MEDS: DEXAMETHASONE SOD PHOSPHATE 10 MG/ML VIAL IV SCH (08:12)
[2020-04-05] MEDS: MEROPENEM 1 G in IV NS 0.9% 100 ML IV SCH ×2 (08:12→20:38)
[2020-04-05] MEDS: PANTOPRAZOLE 40 MG TABLET.DR PO SCH (08:12)
[2020-04-05 10:45] LABS: BASOPHILS % (AUTO) 0.3 % (0.0-2.0); EOSINOPHILS % (AUTO) 0.1 % (0.0-6.0); HEMATOCRIT 32 % (33-45); HEMOGLOBIN 10.3 g/dL (11.5-14.8); LYMPHOCYTES # (AUTO) 0.6 /CMM (0.8-4.8); LYMPHOCYTES % (AUTO) 5.6 % (20.0-44.0); MEAN CORPUSCULAR HGB CONC 32 g/dl (31.0-36.0); MEAN CORPUSCULAR VOLUME 103 fL (82-100); MONOCYTES # (AUTO) 0.3 /CMM (0.1-1.30); NEUTROPHILS # (AUTO) 9.3 /CMM (1.8-8.9); PLATELET COUNT (AUTO) 292 /CMM (150-450); RED BLOOD CELL COUNT(AUTO) 3.14 MIL/uL (4.0-5.2); WHITE BLOOD COUNT (AUTO) 10.2 K/uL (4.3-11.0)
[2020-04-05] MEDS: FERROUS SULFATE (325 MG) 325 MG/TAB TABLET PO SCH ×2 (11:01→17:09)
[2020-04-05 12:00] VITALS: BP 129/70
[2020-04-05 16:00] VITALS: BP 127/69
[2020-04-05] MEDS: VANCOMYCIN HCL 0.75 GM in IV D5W 250 ML IV SCH (17:07)
[2020-04-05] MEDS: JEVITY 1.2 CAL 1,000 ML BOTTLE GT PRN (17:59)
[2020-04-05] MEDS: IV NS 0.9% 1,000 ML IV PRN (17:59)
--- NOTE | 2020-04-05 19:13 | NUR ---
AIR TRAFFIC CONTROL SUPERVISOR NOTE PATIENT IN BED RESTING COMFORTABLY. PATIENT IN NO ACUTE DISTRESS. NO SOB NOTED. PATIENT BREATHING IS EVEN AND UNLABORED. PATIENT ON CARDIAC MONITORING READING SINUS RHYTHM HR 73. PATIENT KEPT CLEAN, DRY, AND COMFORTABLE THROUGHOUT SHIFT. PATIENT SAFETY PRECAUTIONS IN PLACE. PATIENT BED IS LOCKED AND IN LOWEST POSITION. CALL LIGHT WITHIN REACH. WILL ENDORSE CARE TO PM SHIFT FOR WOOD.
--- NOTE | 2020-04-05 19:45 | NUR ---
RN OPENING NOTE PT RECEIVED BEDSIDE. ALERT AND ORIENTED X2. MALTESE SPEAKING. ABLE TO MAKE BASIC NEEDS KNOWN. PT ON 4L NASAL CANNULA. TOLERATING WELL. SUCTION NEEDED. PT SINUS RHYTHM 80-90. ACKERMAN CATHETER INTACT, CLEAN. EMPTIED VIA PREVIOUS SHIFT. SEE OIL FIELD TESTER NOTES. G TUBE INTACT, DRY. MINIMAL RESIDUE. RUNNING JEVITY 1.2 @ 65 ML/ HR. WILL TURN OFF AT 0700. IV ACCESS RAC #18 RUNNING NS 75 ML/ HR. INTACT, PATENT, FLUSHES WELL. NOP OCCLUSIONS. NO INFILTRATIONS. SAFETY PRECAUTIONS IN PLACE. BED LOCKED. LOWEST POSITION. BED ALARM ON. SEMI FOWLERS. CALL LIGHT WITHIN REACH. WILL CONTINUE TO MONITOR. WILL CONTINUE PLAN OF CARE.
[2020-04-05 20:00] VITALS: BP 113/68
[2020-04-05] MEDS: ENOXAPARIN SODIUM 40 MG/0.4 ML DISP.SYRIN SQ SCH (20:38)
[2020-04-06] VITALS: BP 126/61
--- NOTE | 2020-04-06 03:48 | NUR ---
RN NOTE - RENEW SOFT RESTRAINTS RENEWAL OF SOFT RESTRAINTS 04/06/20.
[2020-04-06 04:00] VITALS: BP 130/72
--- NOTE | 2020-04-06 07:27 | NUR ---
RN CLOSING NOTE PT LAYING IN BED. RESTING. ALERT AND ORIENTED X2. TURKMEN SPEAKING. ABLE TO MAKE BASIC NEEDS KNOWN. PT ON 4L NASAL CANNULA. TOLERATING WELL. SUCTION NEEDED. PT SINUS RHYTHM 80-90. ACKERMAN CATHETER INTACT, CLEAN. EMPTIED. SEE CLIENT FINANCE ANALYST NOTES. G TUBE INTACT, DRY. MINIMAL RESIDUE. STOPPED RUNNING JEVITY 1.2 @ 65 ML/ HR AT 0700. WILL START RUNNING AT 1500. ENDORSED TO NEXT SHIFT. IV ACCESS RAC #18 RUNNING NS 75 ML/ HR. INTACT, PATENT, FLUSHES WELL. NO OCCLUSIONS. NO INFILTRATIONS. SAFETY PRECAUTIONS IN PLACE. BED LOCKED. LOWEST POSITION. BED ALARM ON. SEMI FOWLERS. CALL LIGHT WITHIN REACH. WILL ENDORSE TO NEXT SHIFT. WILL CONTINUE TO MONITOR. WILL CONTINUE PLAN OF CARE.
[2020-04-06 07:44] LABS: CALCIUM, SERUM 9.1 mg/dL (8.5-10.1); CREATININE 0.6 mg/dL (0.6-1.3)
--- NOTE | 2020-04-06 07:51 | NUR ---
RN OPEN NOTES PATIENT IS AWAKE A/O X 2. ON 4L OF NASAL CANNULA WITH NO SIGNS OF DISTRESS. RONA SOFT WRIST RESTRAINTS ON, GOOD CAPILLARY REFILL AND NO EDEMA. IV R AC #18g NS AT 75ML/HR. G-TUBE IS INTACT, ACKERMAN CATHETER INTACT. SAFETY MEASURES ARE APPLIED, BED IS IN THE LOWEST POSITION, BUSINESS PROCESS MANAGER RAILS UP X 2, CALL LIGHT WITHIN REACH, WILL CONTINUE TO MONITOR.
[2020-04-06 07:55] LABS: BASOPHILS % (AUTO) 0.2 % (0.0-2.0); HEMATOCRIT 30 % (33-45); HEMOGLOBIN 9.8 g/dL (11.5-14.8); LYMPHOCYTES % (AUTO) 12.2 % (20.0-44.0); MEAN CORPUSCULAR HGB CONC 33 g/dl (31.0-36.0); MEAN CORPUSCULAR VOLUME 101 fL (82-100); MONOCYTES # (AUTO) 0.5 /CMM (0.1-1.30); MONOCYTES % (AUTO) 6.5 % (2.0-12.0); NEUTROPHILS # (AUTO) 6.4 /CMM (1.8-8.9); NEUTROPHILS % (AUTO) 81.1 % (43.0-81.0); PLATELET COUNT (AUTO) 287 /CMM (150-450); RED BLOOD CELL COUNT(AUTO) 2.95 MIL/uL (4.0-5.2); WHITE BLOOD COUNT (AUTO) 7.9 K/uL (4.3-11.0)
[2020-04-06 08:00] VITALS: BP 139/72
[2020-04-06] MEDS: FERROUS SULFATE (325 MG) 325 MG/TAB TABLET PO SCH ×2 (09:20→16:33)
[2020-04-06] MEDS: PANTOPRAZOLE 40 MG TABLET.DR PO SCH (09:20)
[2020-04-06] MEDS: DEXAMETHASONE SOD PHOSPHATE 10 MG/ML VIAL IV SCH (09:20)
[2020-04-06] MEDS: MEROPENEM 1 G in IV NS 0.9% 100 ML IV SCH ×2 (09:24→22:21)
[2020-04-06] MEDS: ALBUTEROL SULFATE INH 18 GM HFA.AER.AD IH SCH ×4 (10:30→23:21)
[2020-04-06] MEDS: VANCOMYCIN HCL 0.75 GM in IV D5W 250 ML IV SCH (11:39)
[2020-04-06 16:00] VITALS: BP 123/61
[2020-04-06] MEDS: DOCUSATE SODIUM 100 MG CAPSULE PO SCH (16:33)
[2020-04-06] MEDS: IV NS 0.9% 1,000 ML IV PRN (19:35)
--- NOTE | 2020-04-06 19:45 | NUR ---
RN NOTES PATIENT IS AWAKE A/O X 2. ON 4L OF NASAL CANNULA WITH NO SIGNS OF DISTRESS. RONA SOFT WRIST RESTRAINTS ON, GOOD CAPILLARY REFILL AND NO EDEMA. IV R AC #18g NS AT 75ML/HR. G-TUBE IS INTACT, ACKERMAN CATHETER INTACT. ORAL SUCTIONING PROVIDED TOLERATED WELL.SAFETY MEASURES ARE APPLIED, BED IS IN THE LOWEST POSITION, RAILCAR SWITCHMAN RAILS UP X 2, CALL WITHIN REACH, WILL ENDORSE TO THE NEXT MICROSOFT DYNAMICS CONSULTANT NURSE.
[2020-04-06 20:00] VITALS: BP 110/77
--- NOTE | 2020-04-06 20:06 | NUR ---
RN CLOSING NOTES PATIENT IS AWAKE A/O X 2. ON 4L OF NASAL CANNULA WITH NO SIGNS OF DISTRESS. RONA SOFT WRIST RESTRAINTS ON, GOOD CAPILLARY REFILL AND NO EDEMA. IV R AC #18g NS AT 75ML/HR. G-TUBE IS INTACT, ACKERMAN CATHETER INTACT. ALL TREATMENTS AND MEDICATIONS WERE ADMINISTERED ANTICIPATED. PATIENT KEPT CLEAN AND DRY. SAFETY MEASURES ARE APPLIED, BED IS IN THE LOWEST POSITION, BAG MACHINE ADJUSTER RAILS UP X 2, CALL WITHIN REACH, WILL ENDORSE TO THE NEXT OIL WELL GUN PERFORATOR OPERATOR NURSE.
[2020-04-06] MEDS: ENOXAPARIN SODIUM 40 MG/0.4 ML DISP.SYRIN SQ SCH (22:24)
[2020-04-06] MEDS: JEVITY 1.2 CAL 1,000 ML BOTTLE GT PRN (23:39)
[2020-04-07] MEDS: ALBUTEROL SULFATE INH 18 GM HFA.AER.AD IH SCH ×6 (02:35→22:30)
[2020-04-07] MEDS: VANCOMYCIN HCL 0.75 GM in IV D5W 250 ML IV SCH ×2 (04:02→23:14)
--- NOTE | 2020-04-07 05:22 | NUR ---
RN NOTES WOND CARE PROVIDED TOLERATED WELL WILL CONTINUE TO MONITOR.
--- NOTE | 2020-04-07 07:28 | NUR ---
MS/RN OPENING NOTES RECEIVED PATIENT ON BED. ALERT AND ORIENTED X2. PATIENT IS 4L OXYGEN SATURATING WELL. PATIENT IN NO APPARENT RESPIRATORY DISTRESS NOTED. NO SIGN AND SYMPTOM OF PAIN AT THIS TIME. WILL CONTINUE TO MONITOR.
[2020-04-07 08:00] VITALS: BP 116/71
[2020-04-07 08:15] LABS: CALCIUM, SERUM 8.8 mg/dL (8.5-10.1); CARBON DIOXIDE 28 mmol/L (21-32); CHLORIDE 106 mmol/L (98-107); CREATININE 0.5 mg/dL (0.6-1.3); GLUCOSE 118 mg/dL (74-106); POTASSIUM 4.1 mmol/L (3.5-5.1); SODIUM SERUM 140 mmol/L (136-145); UREA NITROGEN, BLOOD 22 mg/dL (7-18)
[2020-04-07 08:39] LABS: BASOPHILS % (AUTO) 0.3 % (0.0-2.0); EOSINOPHILS % (AUTO) 0.6 % (0.0-6.0); HEMATOCRIT 30 % (33-45); HEMOGLOBIN 9.9 g/dL (11.5-14.8); LYMPHOCYTES # (AUTO) 1.2 /CMM (0.8-4.8); LYMPHOCYTES % (AUTO) 13.4 % (20.0-44.0); MEAN CORPUSCULAR HGB CONC 33 g/dl (31.0-36.0); MEAN CORPUSCULAR VOLUME 101 fL (82-100); MONOCYTES # (AUTO) 0.8 /CMM (0.1-1.30); MONOCYTES % (AUTO) 8.7 % (2.0-12.0); NEUTROPHILS # (AUTO) 6.8 /CMM (1.8-8.9); PLATELET COUNT (AUTO) 252 /CMM (150-450); RED BLOOD CELL COUNT(AUTO) 2.95 MIL/uL (4.0-5.2); WHITE BLOOD COUNT (AUTO) 8.8 K/uL (4.3-11.0)
[2020-04-07] MEDS: PANTOPRAZOLE 40 MG TABLET.DR PO SCH (08:42)
[2020-04-07] MEDS: ASCORBIC ACID 500 MG TABLET GT SCH (08:43)
[2020-04-07] MEDS: DOCUSATE SODIUM 100 MG CAPSULE PO SCH ×2 (08:43→17:12)
[2020-04-07] MEDS: FERROUS SULFATE (325 MG) 325 MG/TAB TABLET PO SCH ×2 (08:43→17:12)
[2020-04-07] MEDS: MULTIVITAMINS,THERAGRAN 1 UDTAB TABLET GT SCH (08:43)
[2020-04-07] MEDS: MEROPENEM 1 G in IV NS 0.9% 100 ML IV SCH ×2 (08:45→21:40)
--- NOTE | 2020-04-07 09:16 | NUR ---
WOUND CARE CONSULT: PT PRESENTS WITH SACRAL STAGE 3 ULCER, PRESENT ON ADMISSION. RECOMMEND SURGICAL CONSULT. DR HAZEL BALDERRAMA NOTIFIED OF CONSULT REQUEST. RECOMMENDATIONS MADE FOR SKIN PROTECTION AND WOUND CARE. DISCUSSED WITH NURSING STAFF. PT IS ON [facility]. IN AGREEMENT WITH PLAN OF CARE. Addendum: 04/07/20 at 0917 by GOPI HAWKINS WNDNU Amended: Links added.
[2020-04-07] MEDS ORDERED: HYDROGEL DRESSING 90 GM TUBE TP PRN (09:30)
[2020-04-07] MEDS: HYDROGEL DRESSING 90 GM TUBE TP SCH (10:36)
[2020-04-07] MEDS: IV NS 0.9% 1,000 ML IV PRN (11:25)
[2020-04-07 14:00] VITALS: BP 140/62
--- NOTE | 2020-04-07 18:49 | NUR ---
MS/RN CLOSING NOTES PATIENT IS ON BED,AWAKE ALERT AND ORIENTED X2. PATIENT IS ON 4L OXYGEN VIA NASAL CANNULA SATURATION 92%. PATIENT IN NO APPARENT RESPIRATORY DISTRESS NOTED. NO COMPLAINED OF PAIN NOTED AT THIS TIME. GTUBE FEEDING JEVITY 1.2 AT 65ML/HR ON AND INFUSING WELL. SEEN AND EXAMINED BY MD WITH ORDERS MADE AND CARRIED OUT. ALL DUE MEDICATIONS WAS GIVEN. SAFETY PRECAUTIONS WAS IN PLACED. BED IN LOWEST POSITION AND LOCKED. SIDE RAILS WAS LOCKED X2. WILL ENDORSED TO REINFORCEMENT MAKER FOR WOOD.
--- NOTE | 2020-04-07 19:10 | NUR ---
MSRN AWAKE, ABLE TO UNDERSTAND SIMPLE INSTRUCTIONS. NO VERBAL , NODDS ONLY. GT FEEDING WELL TOLERATED. HOB 40 DEGREES AT ALLTIMES.REPOSITIONED FOR COMFORT. CLOSELY WATCHED.
[2020-04-07 20:00] VITALS: BP 132/85
[2020-04-07] MEDS: ENOXAPARIN SODIUM 40 MG/0.4 ML DISP.SYRIN SQ SCH (21:42)
--- NOTE | 2020-04-07 22:52 | NUR ---
MSRN JEN TROUGH STILL PENDING OF THIS TIME.
--- NOTE | 2020-04-07 23:17 | NUR ---
DOMINGO YOUNG 12. WILL ADMINISTER JEN.
[2020-04-08] MEDS: ALBUTEROL SULFATE INH 18 GM HFA.AER.AD IH SCH ×6 (02:30→23:35)
--- NOTE | 2020-04-08 06:50 | NUR ---
MSRN AM CARE DONE. FREQ SUCTIONING DROOLS AND ABLE TO SPIT OUT SECRETIONS. HOB 40 DEGREES MAINTAINED. NO RESP DISTRESS. GOOD URINE OUTPUT. FEEDINGS OFF FOR NOW. REPOSITIONED FOR COMFORT.
--- NOTE | 2020-04-08 08:00 | NUR ---
RN OPENING NOTE PT IS CURRENTLY NONVERBAL. AROUSABLE TO NAME AND IS ABLE TO RESPOND TO NURSE QUESTIONS WITH SHAKING/NODDING HEAD. CURRENTLY ON 4L NC WITH NO RESPIRATORY DISTRESS PRESENT. FC IN PLACE, DRAINING WITH CLEAR ANTONIA URINE. ON BEDREST. SACRAL WOUND PRESENT. G TUBE PRESENT. HL PRESENT IN R AC. SAFETY MEASURES IN PLACE. SIDE RAILS RAISED. BED LOWERED. CALL LIGHT WITHIN REACH. WILL CONTINUE TO MONITOR.
[2020-04-08 08:50] LABS: CALCIUM, SERUM 8.6 mg/dL (8.5-10.1); CARBON DIOXIDE 25 mmol/L (21-32); CHLORIDE 102 mmol/L (98-107); CREATININE 0.5 mg/dL (0.6-1.3); GLUCOSE 117 mg/dL (74-106); POTASSIUM 3.5 mmol/L (3.5-5.1); SODIUM SERUM 136 mmol/L (136-145); UREA NITROGEN, BLOOD 14 mg/dL (7-18)
[2020-04-08 08:57] VITALS: BP 119/76
[2020-04-08] MEDS: FERROUS SULFATE (325 MG) 325 MG/TAB TABLET PO SCH ×2 (09:25→16:53)
[2020-04-08] MEDS: MULTIVITAMINS,THERAGRAN 1 UDTAB TABLET GT SCH (09:25)
[2020-04-08] MEDS: DOCUSATE SODIUM 100 MG CAPSULE PO SCH ×2 (09:25→16:53)
[2020-04-08] MEDS: PANTOPRAZOLE 40 MG TABLET.DR PO SCH (09:25)
[2020-04-08] MEDS: ASCORBIC ACID 500 MG TABLET GT SCH (09:25)
[2020-04-08] MEDS: HYDROGEL DRESSING 90 GM TUBE TP SCH (09:25)
[2020-04-08] MEDS: MEROPENEM 1 G in IV NS 0.9% 100 ML IV SCH ×2 (09:26→21:12)
[2020-04-08 14:00] VITALS: BP 156/79
[2020-04-08] MEDS: PROSOURCE / PROSTAT (PYXIS) 30 ML UDC GT SCH (14:36)
[2020-04-08] MEDS: JEVITY 1.2 CAL 1,000 ML BOTTLE GT PRN (16:23)
[2020-04-08] MEDS: VANCOMYCIN HCL 0.75 GM in IV D5W 250 ML IV SCH (16:53)
--- NOTE | 2020-04-08 18:52 | NUR ---
RN CLOSING NOTE PT IS CURRENTLY NONVERBAL. AROUSABLE TO NAME AND IS ABLE TO RESPOND TO NURSE QUESTIONS WITH SHAKING/NODDING HEAD. CURRENTLY ON 4L NC WITH NO RESPIRATORY DISTRESS PRESENT. SECRETIONS COMING FROM MOUTH PRESENT. FC IN PLACE, DRAINING WITH CLEAR ANTONIA URINE. ON BEDREST. SACRAL WOUND PRESENT. G TUBE PRESENT. HL PRESENT IN R AC. SAFETY MEASURES IN PLACE. SIDE RAILS RAISED. BED LOWERED. CALL LIGHT WITHIN REACH. ROUTINE MEDS GIVEN. REPORT GIVEN TO THE NIGHT NURSE.
--- NOTE | 2020-04-08 19:45 | NUR ---
MS RN NOTES RECEIVED ON BED, ON SEMI FOWLERS POSITION,BREATHING NON LABORED,O2 IN USED AT 4L/NC,O2 SAT 98%.WITH JEVITY 1.2 FEEDING IN PROGRESS VIA GT AT 65ML/HR RATE X 20HOURS, NO RESIDUAL VOLUME NOTED.WITH ACKERMAN CATH IN PLACE DRAINING CLEAR YELLOW URINE OUTPUT.SALINE LOCK LEFT AC INTACT AND PATENT.NOTED DROOLS WITH MUCUS,SUCTION ORALLY NEEDED.WILL CONTINUE TO MONITOR.
[2020-04-08 20:00] VITALS: BP_SYST 121; BP_SYST 128; BP_DIAS 70; BP_DIAS 72
[2020-04-08] MEDS: ENOXAPARIN SODIUM 40 MG/0.4 ML DISP.SYRIN SQ SCH (21:13)
[2020-04-08 21:43] VITALS: BP 128/72
--- NOTE | 2020-04-08 22:00 | NUR ---
MS RN NOTES GT FLUSHED WITH WATER 250 Q 4 ORDERED
[2020-04-09] MEDS: IV NS 0.9% 1,000 ML IV PRN (00:48)
[2020-04-09] MEDS: ALBUTEROL SULFATE INH 18 GM HFA.AER.AD IH SCH ×6 (02:51→21:56)
--- NOTE | 2020-04-09 07:10 | NUR ---
MS RN NOTES ON BED A/O X1-2,SLEPT WELL,GT FEEDING TOLERATED WELL,REPOSITIONED PER PROTOCOL.IN NO ACUTE DISTRESS.
--- NOTE | 2020-04-09 07:30 | NUR ---
MS RN NOTES PATIENT IS IN BED RESTING. A/O X1-2, SPEAKS LITTLE, MOUTHS WORDS. BREATHING EVEN AND UNLABORED, ON O2 4LPM VIA NC, NO SOB NOTED. IV LINE ON RAC #18 INTACT ANC PATENT. GT IS INTACT AND IN PLACE, FEEDING OF JEVITY 1.2 AT 65ML/HR RATE X 20HOURS, NO RESIDUAL NOTED. ACKERMAN CATH IN PLACE, DRAINING CLEAR YELLOW URINE. SAFETY PRECS IN PLACE. WILL CONTINUE TO MONITOR.
[2020-04-09 07:38] LABS: CALCIUM, SERUM 8.8 mg/dL (8.5-10.1); CARBON DIOXIDE 33 mmol/L (21-32); CHLORIDE 103 mmol/L (98-107); CREATININE 0.5 mg/dL (0.6-1.3); GLUCOSE 122 mg/dL (74-106); POTASSIUM 3.5 mmol/L (3.5-5.1); SODIUM SERUM 139 mmol/L (136-145); UREA NITROGEN, BLOOD 12 mg/dL (7-18)
[2020-04-09] MEDS: PANTOPRAZOLE 40 MG TABLET.DR PO SCH (07:40)
[2020-04-09 08:00] VITALS: BP 144/73
[2020-04-09] MEDS: PROSOURCE / PROSTAT (PYXIS) 30 ML UDC GT SCH (08:58)
[2020-04-09] MEDS: ASCORBIC ACID 500 MG TABLET GT SCH (08:58)
[2020-04-09] MEDS: MEROPENEM 1 G in IV NS 0.9% 100 ML IV SCH ×2 (08:59→20:56)
[2020-04-09] MEDS: FERROUS SULFATE (325 MG) 325 MG/TAB TABLET PO SCH ×2 (08:59→16:50)
[2020-04-09] MEDS: DOCUSATE SODIUM 100 MG CAPSULE PO SCH (08:59)
[2020-04-09] MEDS: MULTIVITAMINS,THERAGRAN 1 UDTAB TABLET GT SCH (08:59)
[2020-04-09] MEDS: HYDROGEL DRESSING 90 GM TUBE TP SCH (09:00)
[2020-04-09] MEDS: VANCOMYCIN HCL 0.75 GM in IV D5W 250 ML IV SCH (11:11)
[2020-04-09 16:00] VITALS: BP 132/71
[2020-04-09] MEDS: DOCUSATE SODIUM LIQ 100 MG/10 ML UDC PO SCH (16:50)
[2020-04-09] MEDS: JEVITY 1.2 CAL 1,000 ML BOTTLE GT PRN (18:50)
--- NOTE | 2020-04-09 19:00 | NUR ---
MS RN NOTES PATIENT IS IN BED RESTING, AWAKE, EYES OPEN. A/O X1-2, MOUTHS WORDS, RESPONDS W/ NODS. BREATHING EVEN AND UNLABORED, CONTINUES ON O2 4LPM VIA NC, NO SOB NOTED. IV LINE ON RAC #18 INTACT ANC PATENT. GT IS INTACT AND IN PLACE, FEEDING OF JEVITY 1.2 AT 65ML/HR, NO RESIDUAL NOTED. ACKERMAN CATH IN PLACE, DRAINING CLEAR YELLOW URINE. SAFETY PRECS MAINTAINED. HOB ELEVATED, ASPIRATION PRECS OBSERVED. SECRETIONS SUCTIONED ORALLY AND CLEANED W/ TOWEL DURING SHIFT. WILL ENDORSE TO BRANCH EMPLOYMENT COORDINATOR RN FOR WOOD.
--- NOTE | 2020-04-09 19:30 | NUR ---
MS RN NOTES RECEIVED ON BED SLEEPING,AROUSABLE TO VERBAL STIMULI,O2 IN USED AT 4L/NC TO KEEP O2 SAT ABOVE 90%.WITH GT FEEDING OF JEVITY AT 65ML/HR RATE,NOTED 10ML RESIDUAL VOLUME.ON KCI MATTRESS FOR SKIN MANAGEMENT.ACKERMAN CATH IN PLACE DRAINING YELLOWISH OUTPUT.WILL CONTINUE TO MONITOR STATUS.
[2020-04-09 20:00] VITALS: BP_SYST 113; BP_SYST 118; BP_DIAS 58; BP_DIAS 67
[2020-04-09 20:30] VITALS: BP 118/67
[2020-04-09] MEDS: ENOXAPARIN SODIUM 40 MG/0.4 ML DISP.SYRIN SQ SCH (20:57)
[2020-04-10] MEDS: ALBUTEROL SULFATE INH 18 GM HFA.AER.AD IH SCH ×6 (02:24→23:14)
[2020-04-10 05:36] LABS: CALCIUM, SERUM 8.2 mg/dL (8.5-10.1); CARBON DIOXIDE 32 mmol/L (21-32); CHLORIDE 103 mmol/L (98-107); CREATININE 0.5 mg/dL (0.6-1.3); GLUCOSE 152 mg/dL (74-106); POTASSIUM 3.1 mmol/L (3.5-5.1); SODIUM SERUM 138 mmol/L (136-145); UREA NITROGEN, BLOOD 13 mg/dL (7-18)
[2020-04-10] MEDS: VANCOMYCIN HCL 0.75 GM in IV D5W 250 ML IV SCH ×2 (05:46→17:39)
--- NOTE | 2020-04-10 05:56 | NUR ---
MS RN NOTES VANCO TROUGH- 9,DOSE ADMINISTERED.
--- NOTE | 2020-04-10 07:08 | NUR ---
MS RN NOTES NEEDS FREQUENT SUCTIONING ORALLY,DROOLS A LOT,IV SITE LEAKING,REPOSITIONED PER PROTOCOL.IN NO ACUTE DISTRESS.
--- NOTE | 2020-04-10 07:34 | NUR ---
MS RN NOTES PATIENT IS IN BED RESTING, EYES CLOSED. A/O X1-2, MOUTHS WORDS, RESPONDS W/ NODS. BREATHING EVEN AND UNLABORED, ON O2 4LPM VIA NC, NO SOB NOTED. IV LINE CHANGED BY PREVIOUS SHIFT RN. GT IS INTACT AND IN PLACE, FEEDING OF JEVITY 1.2 AT 65ML/HR, NO RESIDUAL NOTED. ACKERMAN CATH IN PLACE, DRAINING CLEAR YELLOW URINE. SAFETY PRECS IN PLACE. WILL CONTINUE TO MONITOR.
[2020-04-10 08:00] VITALS: BP 122/69
[2020-04-10] MEDS: HYDROGEL DRESSING 90 GM TUBE TP SCH (08:11)
[2020-04-10] MEDS: DOCUSATE SODIUM LIQ 100 MG/10 ML UDC PO SCH ×2 (08:11→16:59)
[2020-04-10] MEDS: MULTIVITAMINS,THERAGRAN 1 UDTAB TABLET GT SCH (08:11)
[2020-04-10] MEDS: FERROUS SULFATE (325 MG) 325 MG/TAB TABLET PO SCH ×2 (08:11→16:59)
[2020-04-10] MEDS: PROSOURCE / PROSTAT (PYXIS) 30 ML UDC GT SCH (08:11)
[2020-04-10] MEDS: ASCORBIC ACID 500 MG TABLET GT SCH (08:11)
[2020-04-10] MEDS: PANTOPRAZOLE 40 MG TABLET.DR PO SCH (08:11)
[2020-04-10] MEDS: MEROPENEM 1 G in IV NS 0.9% 100 ML IV SCH ×2 (09:09→20:39)
[2020-04-10] MEDS ORDERED: POTASSIUM CHLORIDE 20 MEQ POWDER PACKET GT ONE (10:30)
[2020-04-10 16:00] VITALS: BP 135/58
--- NOTE | 2020-04-10 19:10 | NUR ---
MS RN NOTES PATIENT IS IN BED RESTING, AWAKE, EYES OPEN. A/O X1-2, MOUTHS WORDS, RESPONDS W/ NODS. BREATHING EVEN AND UNLABORED, CONTINUES ON O2 4LPM VIA NC, NO SOB NOTED. IV LINE ON LEFT HAND #22 INTACT ANC PATENT. GT IS INTACT AND IN PLACE, FEEDING OF JEVITY 1.2 AT 65ML/HR, NO RESIDUAL NOTED. ACKERMAN CATH IN PLACE, DRAINING CLEAR YELLOW URINE. SAFETY PRECS MAINTAINED. HOB ELEVATED, ASPIRATION PRECS OBSERVED. SECRETIONS SUCTIONED NEEDED. WILL ENDORSE TO LATHE OPERATOR CONTACT LENS RN FOR WOOD.
--- NOTE | 2020-04-10 19:49 | NUR ---
MS RN OPENING NOTES PATIENT RECEIVED BEDSIDE. PATIENT IS IN BED RESTING, EYES CLOSED. A/O X1-2, MOUTHS WORDS, RESPONDS W/ NODS. ARMENIAN SPEAKING. BREATHING EVEN AND UNLABORED, ON O2 4LPM VIA NC, NO SOB NOTED. IV LINE CHANGED BY PREVIOUS SHIFT RN. SACRAL WOUND, WILL PERFORM WOUND CARE, APPLY MEPILEX. GT IS INTACT AND IN PLACE, FEEDING OF JEVITY 1.2 AT 65ML/HR, NO RESIDUAL NOTED. ACKERMAN CATH IN PLACE, DRAINING CLEAR YELLOW URINE. SAFETY PRECAUTIONS IN PLACE. WILL CONTINUE TO MONITOR. WILL CONTINUE PLAN OF CARE.
[2020-04-10 20:00] VITALS: BP 122/68
[2020-04-10] MEDS: ENOXAPARIN SODIUM 40 MG/0.4 ML DISP.SYRIN SQ SCH (20:42)
[2020-04-10 22:18] VITALS: BP 122/68
[2020-04-11] MEDS: ALBUTEROL SULFATE INH 18 GM HFA.AER.AD IH SCH ×4 (02:20→13:46)
[2020-04-11] MEDS: VANCOMYCIN HCL 0.75 GM in IV D5W 250 ML IV SCH (04:44)
--- NOTE | 2020-04-11 07:07 | NUR ---
MS RN CLOSING NOTES PATIENT LAYING IN BED. RESTING, EYES CLOSED. A/O X1-2, RESPONDS W/ NODS. PRIMARY LANGUAGE IS [place]. BREATHING EVEN AND UNLABORED, ON O2 4LPM VIA NC, NO SOB NOTED. SACRAL WOUND, WILL PERFORM WOUND CARE, APPLY MEPILEX. GT IS INTACT AND IN PLACE, FEEDING OF JEVITY 1.2 AT 65ML/HR, NO RESIDUAL NOTED. ACKERMAN CATH IN PLACE, DRAINING CLEAR YELLOW URINE. DRAINED 1000 ML. SAFETY PRECAUTIONS IN PLACE. WILL CONTINUE TO MONITOR. WILL CONTINUE PLAN OF CARE. WILL ENDORSE TO UPCOMING SHIFT.
[2020-04-11 07:53] LABS: CALCIUM, SERUM 8.7 mg/dL (8.5-10.1); CARBON DIOXIDE 33 mmol/L (21-32); CHLORIDE 100 mmol/L (98-107); CREATININE 0.5 mg/dL (0.6-1.3); GLUCOSE 137 mg/dL (74-106); POTASSIUM 3.5 mmol/L (3.5-5.1); SODIUM SERUM 136 mmol/L (136-145); UREA NITROGEN, BLOOD 11 mg/dL (7-18)
--- NOTE | 2020-04-11 07:55 | NUR ---
MS/RN OPENING NOTE RECEIVED FROM BENCH PATTERNMAKER METAL NURSE PATIENT A/O X1 NONVERBAL AWAKE IN BED. NO PAIN/ ACUTE DISTRESS NOTED AT THIS TIME. PATIENT ON OXYGEN VIA NASAL CANNULA 2L, TOLERATING WELL. SAFETY MEASURES IN PLACE, BED LOCKED AND IN LOWEST POSITION, CALL LIGHT WITHIN REACH. WILL CONTINUE TO MONITOR AND ENSURE SAFETY.
[2020-04-11 08:00] VITALS: BP 131/76
[2020-04-11] MEDS: DOCUSATE SODIUM LIQ 100 MG/10 ML UDC PO SCH (08:31)
[2020-04-11] MEDS: MULTIVITAMINS,THERAGRAN 1 UDTAB TABLET GT SCH (08:31)
[2020-04-11] MEDS: ASCORBIC ACID 500 MG TABLET GT SCH (08:32)
[2020-04-11] MEDS: FERROUS SULFATE (325 MG) 325 MG/TAB TABLET PO SCH (08:32)
[2020-04-11] MEDS: MEROPENEM 1 G in IV NS 0.9% 100 ML IV SCH (08:48)
[2020-04-11] MEDS ORDERED: PANTOPRAZOLE 40 MG/PACK PACK NG SCH (09:00)
[2020-04-11] MEDS: HYDROGEL DRESSING 90 GM TUBE TP SCH (09:55)
[2020-04-11] MEDS: PROSOURCE / PROSTAT (PYXIS) 30 ML UDC GT SCH (09:57)
[2020-04-11] MEDS: JEVITY 1.2 CAL 1,000 ML BOTTLE GT PRN (09:57)
[2020-04-11] MEDS ORDERED: Prosource GT (13:25)
[2020-04-11] MEDS ORDERED: ENOX40DI SQ (13:25)
[2020-04-11] MEDS ORDERED: LACT-209 GT (13:25)
[2020-04-11] MEDS ORDERED: MERO500V21 IV (13:25)
[2020-04-11] MEDS ORDERED: VANC750F2 IV (13:25)
--- NOTE | 2020-04-11 17:22 | NUR ---
MS/RN DISCHARGED PATIENT DISCHARGED TO SNF IN MEDICALLY STABLE CONDITION. ESCORTED TO LOBBY BY 2 PARAMEDICS. ALL PERSONAL BELONGING RETURNED AND SIGNED OFF FOR IN BELONGING LIST. 2X HEPLOCKS KEPT FOR IV ACCESS AT FACILITY. NAME BAND REMOVED. GAVE TELEPHONE REPORT TO VALERIE AT [facility]. PATIENT TO BE TRANSFERRED OVER TO ROOM 15. EXIT CARE SIGNED BY NURSE AND CHARGE NURSE PATIENT IS UNABLE TO SIGN. CIOPY PROVIDED AND GIVEN TO PARAMEDICS.
[2020-04-22] MEDS ORDERED: LACT-209 GT ×2 (11:50)
[2020-04-22] MEDS ORDERED: PIPE3.379 IV (11:50)
[2020-04-22] MEDS ORDERED: Hydrogel Dressing TP (11:50)
== END 2020-04-11 17:30 | DRG 871 ==
LOC: ER 14:31 → TELE2 17:56 → TELE1 04-04 10:20 → TELE 04-05 00:25 → MED 04-06 11:34
PROVIDERS: ADMIT Nurse Practitioner Acute Care; ATTEND Nurse Practitioner Acute Care
DX: A41.9 Sepsis, unspecified organism (principal); J96.01 Acute respiratory failure with hypoxia; G93.41 Metabolic encephalopathy; J69.0 Pneumonitis due to inhalation of food and vomit; N17.0 Acute kidney failure with tubular necrosis; L89.153 Pressure ulcer of sacral region, stage 3; J44.0 Chronic obstructive pulmonary disease with (acute) lower respiratory infection; E44.0 Moderate protein-calorie malnutrition; R64 Cachexia; D68.69 Other thrombophilia; Z68.1 Body mass index [BMI] 19.9 or less, adult; C34.91 Malignant neoplasm of unspecified part of right bronchus or lung; F03.90 Unspecified dementia, unspecified severity, without behavioral disturbance, psychotic disturbance, mood disturbance, and anxiety; D63.8 Anemia in other chronic diseases classified elsewhere; E78.5 Hyperlipidemia, unspecified; Z20.822 Contact with and (suspected) exposure to COVID-19; Z93.1 Gastrostomy status; N18.9 Chronic kidney disease, unspecified; E88.09 Other disorders of plasma-protein metabolism, not elsewhere classified; R13.10 Dysphagia, unspecified; I27.20 Pulmonary hypertension, unspecified; G62.9 Polyneuropathy, unspecified; Z74.01 Bed confinement status; N13.9 Obstructive and reflux uropathy, unspecified; I12.9 Hypertensive chronic kidney disease with stage 1 through stage 4 chronic kidney disease, or unspecified chronic kidney disease; M62.462 Contracture of muscle, left lower leg; M62.461 Contracture of muscle, right lower leg
CPT/HCPCS: 36415; 71045-TC; 80048-TC; 80053-TC; 80061-TC; 80076-TC; 80202-TC; 81001; 82728-TC; 83540-TC; 83605-TC; 83615-TC; 83735-TC; 83880; 84100-TC; 84443-TC; 84484-TC; 85025-TC; 85378-TC; 85385-TC; 85730-TC; 86140-TC; 87040-TC; 87081-TC; A6248; A6253; C9803; G0378; J0692; J1100; J1650; J2185; J2930; J3370; J7030; J7060; U0003